=== PATIENT | male | born 1945 | race Caucasian/White ===

== ENCOUNTER 2016-07-21 18:28 | Observation (INO) | payer MEDICARE ==
[2016-07-21] MEDS ORDERED: Aspirin Low Dose CHEW TAB* 81 MG PO ONE (18:48)
[2016-07-21 19:06] LABS: Hematocrit 47 % (42-52); Hemoglobin 15.7 g/dl (14.0-18.0); Mean Corpuscular HGB Conc 34 g/dl (31-36); Mean Corpuscular Hemoglobin 30 pg (27-31); Mean Corpuscular Volume 90 fL (80-94); Mean Platelet Volume 8 um3 (7.4-10.4); Red Blood Count 5.17 10^6/ul (4.0-5.4); Red Cell Distribution Width 14 % (10.5-15); White Blood Count 11.2 10^3/ul (3.5-10.8)
[2016-07-21 19:21] LABS: Albumin 3.9 g/dL (3.2-5.2); BUN/Creatinine Ratio 15.1 (8-20); EGFR African American 89.1 (>60); EGFR Non-African American 69.3 (>60); Globulin 3.5 g/dL (2-4); Total Bilirubin 0.5 mg/dL (0.2-1.0); Total Protein 7.4 g/dL (6.4-8.9)
[2016-07-21 19:22] LABS: Troponin I 0.01 ng/mL (<0.04)
--- NOTE | 2016-07-21 19:28 | RAD ---
INDICATION: Chest pain COMPARISON: Chest x-ray January 13, 2013 TECHNIQUE: An AP portable view obtained at 1918 hours is submitted. FINDINGS: Bones/Soft Tissues: There are no acute bony findings. Cardiomediastinal: The cardiomediastinal silhouette is normal. Lungs: There are no infiltrates. Pleura: There are no pleural effusions. Other: None IMPRESSION: NO ACTIVE DISEASE.
[2016-07-21] MEDS ORDERED: NS 0.9% 1000 ML* 1,000 ML IV ONE (19:49)
[2016-07-21] MEDS ORDERED: Iohexol 350* (CONTRAST) 500 ML MDV IV ONE (19:49)
--- NOTE | 2016-07-21 20:16 | RAD ---
INDICATION: Dizziness COMPARISON: CT brain June 11, 2014 TECHNIQUE: Noncontrast axial source images were acquired from the skull base to the vertex. FINDINGS: Ventricles/sulci: The ventricles and cisterns are normal in size and configuration for age. Brain parenchyma: There is no acute focal parenchymal finding, evidence of intracranial mass, or intracranial mass effect. There is an old right lentiform nucleus infarct extending into the oliver radiata, unchanged. Intracranial hemorrhage:None. Extra-axial spaces: There are no abnormal extra axial fluid collections or evidence of extra-axial mass. Calvarium: There is no calvarial fracture or other calvarial abnormality. Scalp: There is no evidence of scalp or extracalvarial soft tissue abnormality. Paranasal sinuses/mastoid: The paranasal sinuses and mastoid air cells are clear. Other: Prominent vertebral arterial calcifications. IMPRESSION: NO ACUTE INTRACRANIAL FINDINGS. 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
--- NOTE | 2016-07-21 20:33 | RAD ---
INDICATION: Dizziness COMPARISON: CT brain same date; CTA head and neck June 11, 2014 TECHNIQUE: Axial source images were acquired with coronal and sagittal reconstructions. CT angiographic technique was utilized with injection of 80 mL Omnipaque 350. FINDINGS: Aortic arch: There are no CT angiogram abnormalities of the arch or the great vessels arising from the arch. Right carotid: The internal carotid artery, carotid bifurcation, extracranial portions of the internal carotid artery, carotid artery at the skull base, carotid siphon, and carotid termination appear patent. There is plaque formation at the bifurcation 50% or less diameter stenosis. Left carotid:The internal carotid artery, carotid bifurcation, extracranial portions of the internal carotid artery, carotid artery at the skull base, carotid siphon, and carotid termination appear normal. Right middle and anterior cerebral arteries: There are no CT angiographic abnormalities of the middle or anterior cerebral arteries. Left middle and anterior cerebral arteries: There are no CT angiographic abnormalities of the middle or anterior cerebral arteries Right vertebral: The CT angiographic appearance of the vertebral artery is patent. There is calcific plaque near the confluence with the basilar artery. Left vertebral: The CT angiographic appearance of the vertebral artery is normal. There is calcific plaquing of the confluence with the basilar artery. Basilar artery: The basilar artery and basilar tip appear normal. Posterior cerebral arteries: The distal distribution of the right and left posterior cerebral arteries is normal. [place]: The CT angiographic appearance of the [place] is normal. Source images show no evidence of mass or adenopathy within the neck. There are no focal parenchymal abnormalities or abnormal areas of enhancement. IMPRESSION: MILD ATHEROSCLEROTIC CHANGES. NO EVIDENCE OF A HEMODYNAMICALLY SIGNIFICANT STENOSIS, ANEURYSM, OR BRANCH OCCLUSION CPT II Codes: 3100F RS
[2016-07-21] MEDS ORDERED: Acetaminophen TAB* 325 MG PO PRN (20:53)
[2016-07-21] MEDS ORDERED: Ondansetron INJ* 2 MG/ML VIAL IV PRN (20:53)
[2016-07-21] MEDS ORDERED: Enoxaparin(*) 40 MG/0.4 ML SYR SUBCUT SCH (21:00)
[2016-07-21 21:32] LABS: Magnesium 1.8 mg/dL (1.9-2.7)
--- NOTE | 2016-07-22 03:19 | HP ---
ADMISSION HISTORY AND PHYSICAL: DATE OF ADMISSION: 07/21/16 PRIMARY CARE PROVIDER: Milton Asif NP. ADMITTING PROVIDER: HEIDY Martínez. SUPERVISING PHYSICIAN: Dr. Daniel Long.*(DICTATED BY HEIDY MARTÍNEZ) CHIEF COMPLAINT: Dizziness and chest pressure. HISTORY OF PRESENT ILLNESS: This is a 70-year-old gentleman with history of peripheral vascular disease, status post arterial stenting in his left leg by Dr. Britt 6 months ago, GERD, prior CVA, and gout, who presented to the emergency department with complaints of intermittent dizziness and chest pressure. The patient states that he had similar symptoms approximately 10 years ago and had a negative workup at that time, which included, what sounds to be a thorough cardiac evaluation. He states that he was asymptomatic for several years and his symptoms have been escalating over the last year or so, and in the last couple of weeks he has been having daily or sometimes multiple daily symptoms. He states that the symptoms are not necessarily associated with exertion, they can come at anytime and can occur at rest. He generally gets some relief with lying flat. He denies any associated diaphoresis or nausea, but generally gets short of breath. Symptoms can last anywhere from a minute to an hour, and he generally has a prodrome of what he considers as a feeling of his heart starting to race, then the pressure and the dizziness begin. He has had one prior syncopal episode about 6 to 9 months ago, but otherwise has not syncopized with the above symptoms. Yesterday, the patient reported associated right arm pain and tingling, which is a new symptom for him and it has not recurred since that time. The patient denies abdominal pain and nausea, vomiting. No associated fevers or other recent illness. PAST MEDICAL HISTORY: 1. Peripheral vascular disease, status post arterial stenting in the left leg. 2. GERD. 3. History of CVA without significant residual deficits. 4. Gout. PAST SURGICAL HISTORY: Arterial stenting of the left leg. HOME MEDICATIONS: 1. Aspirin 81 mg p.o. daily. 2. Colchicine 0.6 mg p.o. daily. 3. Protonix 40 mg p.o. daily. 4. Of note, the patient was taken off of Brilinta yesterday as it has been 6 months since his stent was placed. FAMILY HISTORY: The patient denies any family history of heart disease or stroke. SOCIAL HISTORY: The patient has a greater than [id number] smoking history and quit about 6 months ago. REVIEW OF SYSTEMS: As listed above in HPI and otherwise negative. PHYSICAL EXAMINATION GENERAL: This is a very pleasant 70-year-old gentleman, in no acute distress. VITAL SIGNS: Initial vitals, temperature 98.6 degrees Fahrenheit, pulse 82 beats per minute, respiratory rate 16 per minute, oxygen saturations 100% on room air, blood pressure 149/91. Orthostatic vital signs are unremarkable, maintains systolic pressures in the 130s and heart rates in the 70s in a lying, sitting, and standing positions. HEENT: Head is normocephalic, atraumatic, with moist mucous membranes. RESPIRATORY: Lungs are clear to auscultation without wheezes, crackles, or rhonchi. CARDIOVASCULAR: Heart has a regular rate and rhythm, without murmurs, rubs, or gallops. ABDOMEN: Soft and nontender to palpation. NEUROLOGIC: Cranial nerves II through XII are grossly intact. Strength 5/5 in all extremities. PSYCH: The patient is alert and appropriately oriented. DIAGNOSTIC STUDIES/LAB DATA: Laboratory evaluation: CBC shows a white blood cell count of 11,200, hemoglobin of 15.7 g/dL, and platelet count of 212,000. Comprehensive metabolic panel is unremarkable with a sodium of 136 mmol/L, potassium of 4.0 mmol/L, BUN of 16, creatinine of 1.06, estimated GFR of 69. Glucose of 102. Lactic acid normal at 1.5. Total bilirubin and transaminases within normal limits. Troponin negative at 0.01. Imaging: CT of the brain shows no acute disease, but evidence of old infarct. CTA of the head and neck shows no significant stenosis or aneurysm. Chest x-ray shows no acute disease. EKG shows a right bundle-branch block without changes compared to prior. ASSESSMENT AND PLAN: This is a 70-year-old gentleman with history of peripheral vascular disease, GERD, prior CVAs and gout, who presents with escalating symptoms of dizziness and chest pressure. He is asymptomatic at this time. 1. Dizziness and chest pressure - CTA was negative for significant stenosis. The patient's symptoms sound consistent with dysrhythmia. Perhaps, paroxysmal atrial fibrillation or SVT. Workup in the emergency department is unremarkable at this time. The patient will be admitted to observation status and maintained on continuous telemetry monitoring. We will add on a magnesium to his initial labs and replace appropriately if necessary. Serial troponins will also be obtained. If his symptoms are not reproduced during his hospital stay, we would recommend a Holter monitor and/or event monitor. 2. Peripheral vascular disease - continue aspirin. We will also plan on checking a fasting lipid panel. Of note, the patient is not on a statin, which would be indicated for both his peripheral vascular disease and history of CVA, and the patient does not recall any contraindications or intolerances to statin. 3. Gastroesophageal reflux disease. Continue Protonix. 4. History of gout. 5. Code status. The patient is a full code. 6. DVT prophylaxis. The patient is moderate risk for DVT and will be placed on Lovenox 40 mg subcu daily. 7. Healthcare proxy is to be his sister, Paty Villatoro. DISPOSITION: The patient is being admitted to the hospital under observation status with anticipated discharge tomorrow. HEIYD MARTÍNEZ CC: Milton Asif NP.* [id number]/[facility] #: [id number]
[2016-07-22 03:27] LABS: HDL Cholesterol 28.1 mg/dL
[2016-07-22 03:30] LABS: Troponin I 0.01 ng/mL (<0.04)
[2016-07-22] MEDS ORDERED: Omeprazole CAP* 20 MG PO SCH (06:00)
[2016-07-22 07:39] VITALS: BP 116/54
[2016-07-22] MEDS ORDERED: Aspirin EC Low Dose* 81 MG TAB.EC PO SCH (09:00)
[2016-07-22 11:35] LABS: TSH (Thyroid Stimulating Horm) 2.65 mcIU/mL (0.34-5.60)
--- NOTE | 2016-07-22 23:56 | DS ---
DISCHARGE SUMMARY: DATE OF ADMISSION: 07/21/16 DATE OF DISCHARGE: 07/22/16 PRIMARY CARE PROVIDER: Milton Asif NP. DISCHARGE DIAGNOSIS: Episodes of dizziness and heart palpitations most likely related to arrhythmia. SECONDARY DIAGNOSES: 1. Peripheral vascular disease, status post angioplasty of a superficial femoral artery by Dr. Britt in December 2016. 2. History of stroke, questionably embolic in 2013 with no residual deficits. 3. History of gout. 4. Gastroesophageal reflux disease. MEDICATIONS ON DISCHARGE: Unchanged from admission, include: 1. Aspirin 81 mg daily. 2. Colchicine 0.6 mg daily. 3. Protonix 40 mg daily. LABORATORY DATA AND STUDIES PERFORMED DURING THE HOSPITAL STAY: Included troponins throughout the patient's hospital stay was 0.01. Lipid profile showed triglycerides of 133, cholesterol of 152, LDL of 97 and HDL of 28. TSH on the day of admission was noted to be 2.65. The patient's head CTA obtained on 07/21/16, impression: "Mild atherosclerotic changes. No evidence of hemodynamically significant stenosis, aneurysmal branch occlusion." HOSPITALIZATION COURSE: Marcos Crain is a 70-year-old male with a history of peripheral vascular disease who saw Dr. Britt for followup of his peripheral vascular disease after stenting of his superficial femoral artery on the left leg with a visit on 07/20/16. During the 6 months' postop check when he was discussing his symptoms with Dr. Britt, he mentioned that he has had episodes of dizziness and a heat sensation in his chest. Dr. Britt referred him to the ED for further evaluation. Also at that visit, the patient was taken off the Brilinta with which he was treated for 6 months after his stent placement in December 2015. During my conversation with the patient on the day of discharge, he mentioned that he has had those episodes dating back to about 11 or 12 years ago. He describes them as a feeling of soft heartbeat and palpitations with subsequent wave of heat that develops in his chest and rises to his shoulders bilaterally. Also during that time later on, he experiences dizziness and a feeling of "heavy head." The patient stated that several weeks ago he passed out for about a minute after the episode. Afterwards he usually has a couple of slower heart beats that are very "intense" and the sensation resolves. He stated that those episodes may last anywhere from 1 minute to an hour. Somehow, it appears that the headache had been increasing in frequency and in the past several months had been occurring on almost a weekly basis. Last week he had one day on his when he had about 6 or 7 of those episodes, all of them lasting within minutes. When he presented to the ED, he reported the episodes that happened within the past couple of days. He did not have further symptoms of those described during his hospital stay and his temporary office assistant showed first degree AV block and right bundle branch block with his chronic EKG changes. There were no arrhythmias noted during the hospital stay apart from sinus bradycardia down to 48 when the patient is asleep. When I evaluated the patient, his heart rate freeman adequately from 60s to 70s and 80 beats per minute. His oxygen saturation was steady and 98% on room air while ambulating. I had a long discussion with the patient. He has a history of a possible embolic stroke in 2013. While the patient himself recalls that he had an event monitor that he was carrying for approximately a week that was negative several years ago, we were unable to find it in the medical records at that point. I did discuss briefly the case with Dr. Heredia. Dr. Heredia is going to forward the message to Dr. Gaffney's office for the patient to be scheduled in a short period of time for a 4- week monitor placement. The patient also recalls that he had an echocardiogram and stress test in 2013 after his stroke. All of them were unremarkable. Currently, the patient complains of no chest pain and no dizziness. He stated that he never really felt chest pain, but it was a sensation of heat in his chest as described above. Once again, the episodes of dizziness are not precipitated with exercise and they can occur when the patient is lying in bed. At this point, the patient is going to be discharged home. He is advised not to drive since he stated that several weeks ago, he actually passed out during one of those episodes. He is to call Dr. Gaffney's office on 07/24/16, to schedule a followup appointment and hopefully that will occur within the next couple of days afterwards for monitor placement. Physical exam at discharge is unchanged from admission. Please note this is a short summary of the patient's hospital stay. Please refer to further medical records for details. CC: Milton Asif NP; Dr. Gaffney; Dr. Heredia; Dr. Britt* [id number]/[facility] #: [id number] [facility]
--- NOTE | 2016-07-27 11:58 | ED ---
Shaquille Anderson Karl, scribed for Mora Jackson MD on 07/21/16 at 1905 . HPI Cardiac - HPI Summary HPI Summary: 70 y/o M presents to ED c/o a cardiovascular problem for the past 2 days. Pt reported that he has been having intermittent episodes of chest pressure and dizziness accompanied by a near syncopal sensation and occasional LOC. Pt stated his episodes start with dizziness/lightheadedness, then chest pressure/ heart starts racing, and then a feeling as if he is going to lose consciousness that usually resolves after after a few minutes to an hour when he is lying down. Pt reported that his last episode was at 09:30-10:00 this morning and that he had 6-7 episodes yesterday. Pt was referred to the ED by Dr. Britt after describing his sx to him. Pt also stated he has ABAD with his episodes. Pt denied pain in his left arm and any current CP. Pt stated that his last dose of Plavix was yesterday. Hx: quit smoking 6 months ago, multiple CVA's, peripheral vascular disease (stent place in left femoral artery). - History of Current Complaint Chief Complaint: EDDysrhythmPalp Stated Complaint: CHEST PRESSURE Time Seen by Provider: 07/21/16 18:44 Hx Obtained From: Patient Onset/Duration: Started Days Ago - 2, Atraumatic, Still Present Timing: Intermittent, Lasting Minutes - minutes to an hr Initial Severity: Mild Current Severity: Mild Pain Intensity: 0 Pain Scale Used: 0-10 Numeric Character: Pressure/Squeezing Aggravating Factor(s): Nothing Alleviating Factor(s): Position - lying down Associated Signs and Symptoms: Positive: Chest Pain, Headaches, Dizziness, Syncope, Lightheadedness, Palpitations - Additional Pertinent History Primary Care Physician: [id number] - Allergy/Home Medications Allergies/Adverse Reactions: Allergies Allergy/AdvReac Type Severity Reaction Status Date / Time No Known Allergies Allergy Verified 03/21/16 10:13 PMH/Surg Hx/FS Hx/Imm Hx Previously Healthy: Yes Endocrine/Hematology History: Denies: Hx Diabetes Cardiovascular History: Reports: Hx Coronary Artery Disease - ANGIO WITH STENT PLACEMENT LEFT LEG - 01/24/2016, Hx Hypercholesterolemia, Hx Peripheral Vascular Disease Denies: Hx Congestive Heart Failure, Hx Hypertension, Hx Pacemaker/ICD GI History: Reports: Hx Gastroesophageal Reflux Disease - GERD, Other GI Disorders - GASTRITIS History: Denies: Hx Renal Disease Musculoskeletal History: Reports: Hx Arthritis - LOWER BACK, PSEUDO GOUT LEFT KNEE, Hx Back Problems - CHRONIC LBP, Hx Gout Denies: Hx Rheumatoid Arthritis, Hx Osteoporosis Sensory History: Reports: Hx Cataracts - HX OF, Hx Contacts or Glasses - READING GLASSES Denies: Hx Hearing Aid Opthamlomology History: Reports: Hx Cataracts - HX OF, Hx Contacts or Glasses - READING GLASSES Neurological History: Reports: Other Neuro Impairments/Disorders - HX, STROKE 3 DAYS AGO. HX TIA.C/O NECK PAIN TODAY Psychiatric History: Denies: Hx Panic Disorder - Surgical History Surgery Procedure, Year, and Place: TONSILECTOMY A CHILD. 2011 RIGHT CATARACT SURGERY, [facility] [place]. 2013 TEEC, [facility] [place]. 01/21/2016 ANGIO OF AORTA, ANGIO OF UNILATERAL EXTREMITY WITH STENTING OF LEFT SFA, [facility] [place]. Hx Anesthesia Reactions: No Infectious Disease History: No Infectious Disease History: Denies: Traveled Outside the [place] in Last 30 Days - Family History Known Family History: Negative: Other - malignant hyperthermia, anesthesia reaction Family History: denies family history of glaucoma, cataracts, blindness - Social History Alcohol Use: None Substance Use Type: Reports: None Smoking Status (MU): Former Smoker Type: Cigarettes Amount Used/How Often: < 1 PPD Length of Time of Smoking/Using Tobacco: 50 yrs Have You Smoked in the Last Year: Yes Review of Systems Constitutional: Negative Eyes: Negative ENT: Negative Positive: Palpitations, Chest Pain Respiratory: Negative Gastrointestinal: Negative Genitourinary: Negative Musculoskeletal: Negative Skin: Negative Positive: Headache, Syncope Psychological: Normal All Other Systems Reviewed And Are Negative: Yes Physical Exam Triage Information Reviewed: Yes Vital Signs On Initial Exam: Initial Vitals Temp Pulse Resp BP Pulse Ox 98.6 F 82 16 149/91 100 07/21/16 18:31 07/21/16 18:31 07/21/16 18:31 07/21/16 18:31 07/21/16 18:31 Vital Signs Reviewed: Yes Appearance: Positive: Well-Appearing, No Pain Distress Skin: Positive: Warm, Skin Color Reflects Adequate Perfusion, Dry Head/Face: Positive: Normal Head/Face Inspection Eyes: Positive: EOMI, GAEL ENT: Positive: Pharynx normal, TMs normal Neck: Positive: Supple, Nontender Respiratory/Lung Sounds: Positive: Clear to Auscultation, Breath Sounds Present. Negative: Rales, Rhonchi, Wheezes Cardiovascular: Positive: RRR. Negative: Murmur, Rub Abdomen Description: Positive: Nontender, Soft. Negative: Distended, Guarding Bowel Sounds: Positive: Present Musculoskeletal: Positive: Strength/ROM Intact. Negative: Edema Left, Edema Right Neurological: Positive: Sensory/Motor Intact, Alert, Oriented to Person Place, Time, CN Intact II-III Psychiatric: Positive: Affect/Mood Appropriate Diagnostics - Vital Signs Vital Signs Temp Pulse Resp BP Pulse Ox 07/21/16 18:31 98.6 F 82 16 149/91 100 - Laboratory Lab Results: Lab Results 07/21/16 07/21/16 07/21/16 Range/Units 19:00 19:00 19:00 WBC 11.2 H (3.5-10.8) 10^3/ul RBC 5.17 (4.0-5.4) 10^6/ul Hgb 15.7 (14.0-18.0) g/dl Hct 47 (42-52) % MCV 90 (80-94) fL MCH 30 (27-31) pg MCHC 34 (31-36) g/dl RDW 14 (10.5-15) % Plt Count 212 (150-450) 10^3/ul MPV 8 (7.4-10.4) um3 Neut % (Auto) 71.9 (38-83) % Lymph % (Auto) 17.2 L (25-47) % [place] % (Auto) 7.8 (1-9) % Eos % (Auto) 2.4 (0-6) % Baso % (Auto) 0.7 (0-2) % Absolute Neuts (auto) 8.0 H (1.5-7.7) 10^3/ul Absolute Lymphs (auto) 1.9 (1.0-4.8) 10^3/ul Absolute Monos (auto) 0.9 H (0-0.8) 10^3/ul Absolute Eos (auto) 0.3 (0-0.6) 10^3/ul Absolute Basos (auto) 0.1 (0-0.2) 10^3/ul Absolute Nucleated RBC 0.01 10^3/ul Nucleated RBC % 0.1 Sodium 136 (133-145) mmol/L Potassium 4.0 (3.5-5.0) mmol/L Chloride 102 (101-111) mmol/L Carbon Dioxide 28 (22-32) mmol/L Anion Gap 6 (2-11) mmol/L BUN 16 (6-24) mg/dL Creatinine 1.06 (0.67-1.17) mg/dL Est GFR ( Amer) 89.1 (>60) Est GFR (Non-Af Amer) 69.3 (>60) BUN/Creatinine Ratio 15.1 (8-20) Glucose 102 H (70-100) mg/dL Lactic Acid 1.5 (0.5-2.0) mmol/L Calcium 10.0 (8.6-10.3) mg/dL Magnesium 1.8 L (1.9-2.7) mg/dL Total Bilirubin 0.50 (0.2-1.0) mg/dL AST 15 (13-39) U/L ALT 14 (7-52) U/L Alkaline Phosphatase 78 (34-104) U/L Troponin I 0.01 (<0.04) ng/mL Total Protein 7.4 (6.4-8.9) g/dL Albumin 3.9 (3.2-5.2) g/dL Globulin 3.5 (2-4) g/dL Albumin/Globulin Ratio 1.1 (1-3) TSH 2.65 (0.34-5.60) mcIU/mL Result Diagrams: 07/21/16 19:00 07/21/16 19:00 Lab Statement: Any lab studies that have been ordered have been reviewed, and results considered in the medical decision making process. - Radiology CXR Xray Interpretation: No Acute Changes Radiology Interpretation Completed By: Radiologist - IMPRESSION: No active disease. - CT CT Brain CT Interpretation: No Acute Changes CT Interpretation Completed By: Radiologist - IMPRESSION: NO ACUTE INTRACRANIAL FINDINGS. OLD RIGHT LENTIFORM NUCLEUS AND IN [place] RADIATA INFARCT. CTA Head CT Interpretation: Positive (See Comments) CT Interpretation Completed By: Radiologist - IMPRESSION: MILD ATHEROSCLEROTIC CHANGES. NO EVIDENCE OF A HEMODYNAMICALLY SIGNIFICANT STENOSIS, ANEURYSM, OR BRANCH OCCLUSION - EKG 18:35 EKG Interpretation: NSR 69 bpm, RBBB, No change compared to prior EKG on Disposition - Diagnoses Provider Diagnoses: Dizziness Discharge - Discharge Plan Condition: Good Disposition: ADMITTED TO [facility] The documentation as recorded by the Shaquille torres Karl accurately reflects the service I personally performed and the decisions made by me, Mora Jackson MD.
== END 2016-07-22 13:20 | disposition home or self-care (01) ==
LOC: ED 18:28 → MEDTELE 20:53
PROVIDERS: ADMIT Internal Medicine; ATTEND Internal Medicine
DX: R42 Dizziness and giddiness (principal); R00.2 Palpitations; R07.9 Chest pain, unspecified; I49.3 Ventricular premature depolarization; Z86.73 Personal history of transient ischemic attack (TIA), and cerebral infarction without residual deficits; K21.9 Gastro-esophageal reflux disease without esophagitis; I45.10 Unspecified right bundle-branch block; Z79.82 Long term (current) use of aspirin; Z79.899 Other long term (current) drug therapy; I65.21 Occlusion and stenosis of right carotid artery
CPT/HCPCS: 36415; 70450; 70496; 70498; 71010; 80053; 80061; 83605; 83735; 84443; 84484; 85025; 93005; 96360; 96372; 99285; A9270-GY; G0378; J1650; Q9967

== ENCOUNTER 2016-07-27 10:18 | Inpatient (IN) | payer MEDICARE ==
[2016-07-27] MEDS ORDERED: NS 0.9% 1000 ML* 1,000 ML IV SCH (11:15)
[2016-07-27 11:55] LABS: Hematocrit 45 % (42-52); Hemoglobin 15.2 g/dl (14.0-18.0); Mean Corpuscular HGB Conc 34 g/dl (31-36); Mean Corpuscular Hemoglobin 30 pg (27-31); Mean Corpuscular Volume 90 fL (80-94); Mean Platelet Volume 9 um3 (7.4-10.4); Red Blood Count 5.04 10^6/ul (4.0-5.4); Red Cell Distribution Width 14 % (10.5-15); White Blood Count 14.4 10^3/ul (3.5-10.8)
[2016-07-27 12:00] LABS: Urine Bacteria Absent (Absent); Urine Bilirubin Negative (Negative); Urine Glucose Negative (Negative); Urine Nitrite Negative (Negative)
--- NOTE | 2016-07-27 12:05 | RAD ---
Indication: Fall, chest pain. Single frontal view of the chest performed at 1125 hours was reviewed. Comparison is made with previous exam dated July 21, 2016. No mediastinal shift is noted. Heart is of normal size and configuration. Lung corrales appear clear. IMPRESSION: NO ACTIVE CARDIOPULMONARY DISEASE IS NOTED.
--- NOTE | 2016-07-27 12:09 | RAD ---
Indication: Syncope; fall. Hit head. Comparison: July 21, 2016 CT. Technique: Noncontrast CT vertex of skull through foramen magnum. Report: Mild to moderate prominence of the cerebral sulci. Unremarkable ventricles and basal cisterns. Chronic 2.0 x 0.5 cm lacunar infarct at the RIGHT basal ganglia and caudate head. No new region of johnson matter white matter obscuration, intra or extra-axial hemorrhage, or mass effect evident. Unremarkable orbital contents. Negative for calvarial or skull base fracture. Negative for scalp hematoma. Clear visualized paranasal sinuses and mastoid air spaces. IMPRESSION: 1. No traumatic injury or acute intracranial process evident. 2. Old RIGHT basal ganglia lacunar infarct. 3. Mild involutional change.
--- NOTE | 2016-07-27 12:09 | RAD ---
Indication: Neck injury, syncope. CT of the cervical spine was obtained in the axial plane. Sagittal and coronal reconstructed images were obtained. Mastoid air cells appear paranasal sinuses are unremarkable. Degenerative changes of the atlantoaxial joint is noted. The vertebral bodies appear normal in height. No fracture is identified. There is disc space narrowing at C3-C4, C4-C5, C5-C6 and C6-C7. No disc protrusion is identified. The lung apices demonstrate some biapical scarring. The spinous processes are unremarkable. IMPRESSION: Multilevel degenerative disc disease without evidence of fracture. No changes noted since January 13, 2013.
[2016-07-27 12:12] LABS: Albumin 3.8 g/dL (3.2-5.2); BUN/Creatinine Ratio 13.7 (8-20); C Reactive Protein 5.92 mg/L (< 5.00); Calcium 10.3 mg/dL (8.6-10.3); EGFR African American 79.5 (>60); EGFR Non-African American 61.8 (>60); Globulin 3.8 g/dL (2-4); Magnesium 1.8 mg/dL (1.9-2.7); Potassium 3.8 mmol/L (3.5-5.0); Total Bilirubin 0.5 mg/dL (0.2-1.0); Total Protein 7.6 g/dL (6.4-8.9)
[2016-07-27 12:14] LABS: Troponin I 0.01 ng/mL (<0.04)
[2016-07-27 12:38] LABS: TSH (Thyroid Stimulating Horm) 4.71 mcIU/mL (0.34-5.60)
[2016-07-27] MEDS ORDERED: oxyCODONE/Acetamin 5/325 MG* TAB PO ONE (12:54)
[2016-07-27] MEDS ORDERED: Acetaminophen TAB* 325 MG PO PRN (13:04)
[2016-07-27] MEDS ORDERED: Ondansetron INJ* 2 MG/ML VIAL IV PRN (13:28)
[2016-07-27] MEDS ORDERED: Magnesium Sulfate 2 GM IV* 2 GM/50 ML BAG IVPB ONE (13:41)
[2016-07-27] MEDS ORDERED: Potassium Chlor TAB* 20 MEQ TAB.ER PO ONE (14:06)
--- NOTE | 2016-07-27 15:06 | ED ---
Dereck Anderson Adam, scribed for Sesar العلي MD on 07/27/16 at 1127 . Syncope/Near Syncope - HPI Summary HPI Summary: Patient is a 70 y/o male who is in the [facility] s/p a 1-2sec episode of syncope at [id number] today. He had been standing for over an hour doing the dishes when he felt dizzy, tachycardic, and SOB in a cycle, 7 to 8 times. Pt explains he has been experiencing these spells for 12-14 years (each lasting minutes to an hour), but they have worsened this past year. He has also been experiencing episodes of SOB for the last year. He reports seeing his PCP (Milton Asif) for his SOB. This is the first time he has experienced LOC from the spells, but he did fall 6-8months ago after a "spell". Pt hit the right side of the back of his head upon falling and rates his pain at a 5/10. He reports moderate neck and shoulder pain following his fall, but pain is now mild. He has a ABAD from the fall, but denies any SOB currently. He also denies N/V, diarrhea, constipation, fever, diaphoresis, numbness, or tingling (although he does recall tingling in his right hand last week). He reports having a concussion as a child. He has no DM or HTN, but has GERD and Pseudogout. Pt was also here 6 days ago and had a CT of the brain that was negative. - History Of Current Complaint Chief Complaint: EDSyncope Time Seen by Provider: 07/27/16 11:01 Hx Obtained From: Patient Onset/Duration: Sudden Onset, Lasting Minutes, Resolved Timing: Minutes Context: Unwitnessed, Loss Of Consciousness - Brief Activity At Onset: At Rest - Standing up Associated Head Trauma: Yes Aggravating Factor(s): Other - Unknown Alleviating Factor(s): Spontaneous Resolution Associated Signs And Symptoms: Dizzy, Head Trauma (Recent), Headache, Lightheadedness, Palpitations Related History: Similar Episode/Dx as - Syncopal fall 6-8 months ago - Allergies/Home Medications Allergies/Adverse Reactions: Allergies Allergy/AdvReac Type Severity Reaction Status Date / Time No Known Allergies Allergy Verified 03/21/16 10:13 PMH/Surg Hx/FS Hx/Imm Hx Endocrine/Hematology History: Denies: Hx Diabetes Cardiovascular History: Reports: Hx Coronary Artery Disease - ANGIO WITH STENT PLACEMENT LEFT LEG - 01/24/2016, Hx Hypercholesterolemia, Hx Peripheral Vascular Disease Denies: Hx Congestive Heart Failure, Hx Hypertension, Hx Pacemaker/ICD GI History: Reports: Hx Gastroesophageal Reflux Disease - GERD, Other GI Disorders - GASTRITIS History: Denies: Hx Renal Disease Musculoskeletal History: Reports: Hx Arthritis - LOWER BACK, PSEUDO GOUT LEFT KNEE, Hx Back Problems - CHRONIC LBP, Hx Gout Denies: Hx Rheumatoid Arthritis, Hx Osteoporosis Sensory History: Reports: Hx Cataracts - HX OF, Hx Contacts or Glasses - READING GLASSES Denies: Hx Hearing Aid Opthamlomology History: Reports: Hx Cataracts - HX OF, Hx Contacts or Glasses - READING GLASSES Neurological History: Reports: Hx Transient Ischemic Attacks (TIA), Other Neuro Impairments/Disorders - HX, STROKE 3 DAYS AGO. HX TIA.C/O NECK PAIN TODAY Psychiatric History: Denies: Hx Panic Disorder - Surgical History Surgery Procedure, Year, and Place: TONSILECTOMY A CHILD. 2011 RIGHT CATARACT SURGERY, [facility] [place]. 2013 TEEC, [facility] [place]. 01/21/2016 ANGIO OF AORTA, ANGIO OF UNILATERAL EXTREMITY WITH STENTING OF LEFT SFA, [facility]. Hx Anesthesia Reactions: No - Immunization History Date of Tetanus Vaccine: within past 5 years Date of Influenza Vaccine: 2015 Infectious Disease History: No Infectious Disease History: Denies: Traveled Outside the [place] in Last 30 Days - Family History Family History: Denies family history of glaucoma, cataracts, blindness. Father from [place] at 74y/o. Mother had Alzheimers and CVA. No FHx of seizure. An uncle with bone marrow cancer. - Social History Occupation: Employed Full-time Lives: Alone Alcohol Use: None Hx Substance Use: No Substance Use Type: Reports: None Hx Tobacco Use: Yes Smoking Status (MU): Former Smoker - Quit 6 months ago (used to smoke 1ppd for 40 years). Type: Cigarettes Amount Used/How Often: 1 pack a day Length of Time of Smoking/Using Tobacco: 50 yrs Have You Smoked in the Last Year: Yes Review of Systems Positive: Palpitations Neurological: Other - Dizziness Positive: Headache, Syncope All Other Systems Reviewed And Are Negative: Yes Physical Exam Triage Information Reviewed: Yes Vital Signs On Initial Exam: Initial Vitals Temp Pulse Resp BP Pulse Ox 98 F 75 18 136/86 98 07/27/16 10:20 07/27/16 10:20 07/27/16 10:20 07/27/16 10:20 07/27/16 10:20 Vital Signs Reviewed: Yes Appearance: Positive: Well-Appearing, No Pain Distress Skin: Positive: Warm, Skin Color Reflects Adequate Perfusion, Dry Head/Face: Positive: Other - 5.5cm laceration, right occipital subcutaneous. Eyes: Positive: EOMI, GAEL ENT: Positive: Normal ENT inspection Neck: Positive: Supple, Nontender Respiratory/Lung Sounds: Positive: Clear to Auscultation, Breath Sounds Present Cardiovascular: Positive: RRR Abdomen Description: Positive: Nontender, Soft Bowel Sounds: Positive: Present Musculoskeletal: Positive: Normal, Strength/ROM Intact Neurological: Positive: Normal, Sensory/Motor Intact, Alert, Oriented to Person Place, Time Psychiatric: Positive: Affect/Mood Appropriate Procedures - Laceration/Wound Repair 1 Location: head - Right occipital subcutaneous. Description: Linear - 5.5cm Anesthesia: 1.0%, [place] Laceration/Wound Explored: clean - Shur-cleanse and sterile saline. Suture Type: Other - [place]. Number of Sutures: 8 Diagnostics - Vital Signs Vital Signs Temp Pulse Resp BP Pulse Ox 07/27/16 10:20 98 F 75 18 136/86 98 - Laboratory Lab Results: Lab Results 07/27/16 07/27/16 07/27/16 Range/Units 10:49 11:43 11:43 WBC 14.4 H (3.5-10.8) 10^3/ul RBC 5.04 (4.0-5.4) 10^6/ul Hgb 15.2 (14.0-18.0) g/dl Hct 45 (42-52) % MCV 90 (80-94) fL MCH 30 (27-31) pg MCHC 34 (31-36) g/dl RDW 14 (10.5-15) % Plt Count 247 (150-450) 10^3/ul MPV 9 (7.4-10.4) um3 Neut % (Auto) 69.6 (38-83) % Lymph % (Auto) 19.7 L (25-47) % Moody % (Auto) 6.9 (1-9) % Eos % (Auto) 2.1 (0-6) % Baso % (Auto) 1.7 (0-2) % Absolute Neuts (auto) 10.0 H (1.5-7.7) 10^3/ul Absolute Lymphs (auto) 2.8 (1.0-4.8) 10^3/ul Absolute Monos (auto) 1.0 H (0-0.8) 10^3/ul Absolute Eos (auto) 0.3 (0-0.6) 10^3/ul Absolute Basos (auto) 0.2 (0-0.2) 10^3/ul Absolute Nucleated RBC 0 10^3/ul Nucleated RBC % 0 INR (Anticoag Therapy) 0.94 (0.89-1.11) APTT 27.5 (26.0-36.3) seconds D-Dimer, Quantitative > 1050 H (Less Than 230) ng/mL Sodium (133-145) mmol/L Potassium (3.5-5.0) mmol/L Chloride (101-111) mmol/L Carbon Dioxide (22-32) mmol/L Anion Gap (2-11) mmol/L BUN (6-24) mg/dL Creatinine (0.67-1.17) mg/dL Est GFR ( Amer) (>60) Est GFR (Non-Af Amer) (>60) BUN/Creatinine Ratio (8-20) Glucose (70-100) mg/dL Lactic Acid (0.5-2.0) mmol/L Calcium (8.6-10.3) mg/dL Magnesium (1.9-2.7) mg/dL Total Bilirubin (0.2-1.0) mg/dL AST (13-39) U/L ALT (7-52) U/L Alkaline Phosphatase (34-104) U/L Total Creatine Kinase (10-223) U/L CK-MB (CK-2) (0.6-6.3) ng/mL Troponin I (<0.04) ng/mL C-Reactive Protein (< 5.00) mg/L B-Natriuretic Peptide ( - 100) pg/mL Total Protein (6.4-8.9) g/dL Albumin (3.2-5.2) g/dL Globulin (2-4) g/dL Albumin/Globulin Ratio (1-3) Lipase (11.0-82.0) U/L TSH (0.34-5.60) mcIU/mL Urine Color Yellow Urine Appearance Cloudy Urine pH 7.0 (5-9) Ur Specific [place] 1.009 L (1.010-1.030) Urine Protein Negative (Negative) Urine Ketones Negative (Negative) Urine Blood Negative (Negative) Urine Nitrate Negative (Negative) Urine Bilirubin Negative (Negative) Urine Urobilinogen Negative (Negative) Ur Leukocyte Esterase 3+ H (Negative) Urine WBC (Auto) 3+(>20/hpf) H (Absent) Urine RBC (Auto) Trace(0-2/hpf) (Absent) Ur Squamous Epith Cells Present H (Absent) Urine Bacteria Absent (Absent) Urine Glucose Negative (Negative) 07/27/16 07/27/16 07/27/16 Range/Units 11:43 11:43 11:43 WBC (3.5-10.8) 10^3/ul RBC (4.0-5.4) 10^6/ul Hgb (14.0-18.0) g/dl Hct (42-52) % MCV (80-94) fL MCH (27-31) pg MCHC (31-36) g/dl RDW (10.5-15) % Plt Count (150-450) 10^3/ul MPV (7.4-10.4) um3 Neut % (Auto) (38-83) % Lymph % (Auto) (25-47) % Moody % (Auto) (1-9) % Eos % (Auto) (0-6) % Baso % (Auto) (0-2) % Absolute Neuts (auto) (1.5-7.7) 10^3/ul Absolute Lymphs (auto) (1.0-4.8) 10^3/ul Absolute Monos (auto) (0-0.8) 10^3/ul Absolute Eos (auto) (0-0.6) 10^3/ul Absolute Basos (auto) (0-0.2) 10^3/ul Absolute Nucleated RBC 10^3/ul Nucleated RBC % INR (Anticoag Therapy) (0.89-1.11) APTT (26.0-36.3) seconds D-Dimer, Quantitative (Less Than 230) ng/mL Sodium 134 (133-145) mmol/L Potassium 3.8 (3.5-5.0) mmol/L Chloride 102 (101-111) mmol/L Carbon Dioxide 29 (22-32) mmol/L Anion Gap 3 (2-11) mmol/L BUN 16 (6-24) mg/dL Creatinine 1.17 (0.67-1.17) mg/dL Est GFR ( Amer) 79.5 (>60) Est GFR (Non-Af Amer) 61.8 (>60) BUN/Creatinine Ratio 13.7 (8-20) Glucose 79 (70-100) mg/dL Lactic Acid 1.1 (0.5-2.0) mmol/L Calcium 10.3 (8.6-10.3) mg/dL Magnesium 1.8 L (1.9-2.7) mg/dL Total Bilirubin 0.50 (0.2-1.0) mg/dL AST 17 (13-39) U/L ALT 14 (7-52) U/L Alkaline Phosphatase 79 (34-104) U/L Total Creatine Kinase 280 H (10-223) U/L CK-MB (CK-2) 7.6 H (0.6-6.3) ng/mL Troponin I 0.01 (<0.04) ng/mL C-Reactive Protein 5.92 H (< 5.00) mg/L B-Natriuretic Peptide 16 ( - 100) pg/mL Total Protein 7.6 (6.4-8.9) g/dL Albumin 3.8 (3.2-5.2) g/dL Globulin 3.8 (2-4) g/dL Albumin/Globulin Ratio 1.0 (1-3) Lipase 21 (11.0-82.0) U/L TSH 4.71 (0.34-5.60) mcIU/mL Urine Color Urine Appearance Urine pH (5-9) Ur Specific [place] (1.010-1.030) Urine Protein (Negative) Urine Ketones (Negative) Urine Blood (Negative) Urine Nitrate (Negative) Urine Bilirubin (Negative) Urine Urobilinogen (Negative) Ur Leukocyte Esterase (Negative) Urine WBC (Auto) (Absent) Urine RBC (Auto) (Absent) Ur Squamous Epith Cells (Absent) Urine Bacteria (Absent) Urine Glucose (Negative) Result Diagrams: 07/27/16 11:43 07/27/16 11:43 Lab Statement: Any lab studies that have been ordered have been reviewed, and results considered in the medical decision making process. - Radiology CXR Radiology Interpretation Completed By: Radiologist - IMPRESSION: NO ACTIVE CARDIOPULMONARY DISEASE IS NOTED. - CT CERVICAL SPINE CT Interpretation Completed By: Radiologist - IMPRESSION: Multilevel degenerative disc disease without evidence of fracture. No changes BRAIN CT Interpretation Completed By: Radiologist - IMPRESSION: 1. No traumatic injury or acute intracranial process evident. 2. Old RIGHT basal ganglia lacunar infarct. 3. Mild involutional change. - EKG 10:37 Cardiac Rate: NL - 75 BPM EKG Rhythm: Sinus Rhythm - Normal EKG Interpretation: Border ST elevation in the lateral leads - Additional Comments Diagnostic Additional Comments: Troponin = 0.01 Course/Dx Assessment/Plan: SCALP LACERATION CLEANED AND CLOSED WITH ELKE. RESULTS DISCUSSED WITH PATIENT/FAMILY. ADMIT HOSPITALIST STABLE. - Diagnoses Provider Diagnoses: SYNCOPE, Head injury, Scalp laceration Discharge - Discharge Plan Condition: Stable Disposition: ADMITTED TO [facility] documentation as recorded by the Dereck torres Adam accurately reflects the service I personally performed and the decisions made by me, Sesar العلي MD.
[2016-07-27] MEDS: Heparin VIAL(*) 5000 UNITS/ML VIAL (FIVE THOUSAND) SUBCUT SCH ×2 (15:51→22:11)
[2016-07-27] MEDS: NS 0.9% 1000 ML* 1,000 ML IV SCH (15:52)
[2016-07-27] MEDS ORDERED: oxyCODONE/Acetamin 5/325 MG* TAB PO PRN (18:54)
[2016-07-27] MEDS: Omeprazole CAP* 20 MG PO SCH (20:14)
--- NOTE | 2016-07-27 20:33 | HP ---
HISTORY AND PHYSICAL: DATE OF ADMISSION: 07/27/16 PRIMARY CARE PROVIDER: Milton Asif NP ATTENDING PHYSICIAN WHILE IN THE HOSPITAL: Dr. Mckeon *(report dictated by Kori Martínez NP). CHIEF COMPLAINT: 1. Syncope. 2. Chest pressure. HISTORY OF PRESENT ILLNESS: Mr. Crain is a 70-year-old male patient. He has a history of peripheral vascular disease, GERD, CVA, and gout. He comes in today stating that again he had an episode similar to his previous episodes. He was just here from the to . He describes standing at a sink, doing his dishes, he had chest pressure across his chest. He normally would lie down. He had some palpitations. He felt warm. Normally, he would go and lie down and these symptoms would go away because he knows if the symptoms continue , there is a high probability that he would pass out, but today he wanted to finish doing his dishes, so he did not go sit down and unfortunately, he did have an episode where he syncopized. He states he blacked out and by the time he opened his eyes, he was almost hitting the floor. He says that last week he had episodes of this. He has episodes about once a day, not with the syncope all the time, just chest pressure at times. It is nonexertional. He denies having any recent fevers, chills, nausea, vomiting or diarrhea. He came into the ER. There was concern because of the syncopal episode and the fact that he has a fairly significant history of vascular disease. Hospitalist service was asked to evaluate for admission. PAST MEDICAL HISTORY: Significant for: 1. PVD. 2. GERD. 3. CVA. 4. Gout. PAST SURGICAL HISTORY: He has had 6 months ago a stent to his left leg with Dr. Britt. HOME MEDICATIONS: Include: 1. Aspirin 81 mg daily. 2. Protonix 40 mg daily. 3. Colchicine 0.6 mg p.o. daily. ALLERGIES TO MEDICATIONS: Include no known drug allergies. FAMILY HISTORY: His father did have a heart attack. Mother's history was reviewed and noncontributory. SOCIAL HISTORY: He is a former smoker. He does not drink alcohol. He lives alone. Surrogate decision maker is his sister. REVIEW OF SYSTEMS: There is no documented fever. He denied having any significant weight change. There was no double vision. There is no ear discharge. He denies having any rhinorrhea. There is no sore throat. No thyroid enlargement. There is chest pain per my HPI. There is no dyspnea on exertion. There is no orthopnea. No nocturnal dyspnea. No abdominal pain. No nausea. No vomiting. No dysuria. No frequency. No loss of consciousness. No pruritus. No skin ulcerations. Review of 14 systems completed, all others negative. PHYSICAL EXAMINATION GENERAL: At this time, Mr. Crain is a 70-year-old male patient. He appears to be well nourished, well developed. Does not appear to be in any acute distress. VITAL SIGNS: Blood pressure 136/86 with a pulse of 75, respirations 18, O2 sat 98%, and temperature 98.0. HEENT: Head: Atraumatic and normocephalic. He does have a laceration in the occipital area from the fall. Otherwise atraumatic. Eyes: EOMs intact. Sclerae are anicteric and not pale. Throat: Oral mucosa appears to be moist. No oropharyngeal erythema. NECK: Supple. LUNGS: Clear to auscultation bilaterally. No wheezes, rales, or rhonchi. HEART: Sounds S1, S2. Regular rate and rhythm. No murmurs, rubs, or gallops. ABDOMEN: Soft, flat, and nontender. Bowel sounds present. EXTREMITIES: Pulses 2+ throughout. He is able to move all 4 extremities with 5 /5 strength. NEUROLOGIC: The patient is awake, he is alert and oriented x3. Tongue midline. Instrumentation Manager are equal. No gross focal deficits. SKIN: Intact with the exception that he has got a laceration to the back of his head which is now stapled. LABORATORY DATA AND DIAGNOSTIC STUDIES: Today reveal a WBC of 14.4, RBC of 5.04, hemoglobin of 15.2, hematocrit of 45, platelet count 247. INR 0.94. PTT of 27.5. Sodium was 134, potassium was 3.8, chloride of 102, bicarb 29, BUN 16, creatinine of 1.17, glucose 79, lactic 1.1, calcium 10.3, magnesium 1.8. Total bili 0.5, AST 17, ALT 14, alk phos 79, CK 280, CK-MB 7.6, troponin 0.01. CRP of 5.92. Albumin of 3.8. TSH of 4.71. Urine showed 3+ leukocyte esterase, 2+ wbc. He had a brain CT obtained today, which revealed no traumatic injury or acute intracranial process evident. Old right basal ganglia lacunar infarct. Mild involutional change. Cervical spine CT showed multilevel degenerative disk disease without evidence of fracture. No changes noted since December 2012. Chest x-ray obtained today showed no active cardiopulmonary disease. EKG shows a normal sinus rhythm, rate of 75. He had inverted T waves in V1, which he has had in the past. He had as noted right bundle branch block, which has been noted in the past. Old medical records were reviewed. ASSESSMENT AND PLAN: Mr. Crain is a 70-year-old male patient coming into the ER today with complaints of chest discomfort and also complaining of episodes of syncope. He will be admitted under observation status for: 1. Chest pain with syncope: At this point, I do think he warrants an echo. We will go ahead and get a nuclear stress test. In addition to this, we will place him on telemetry, start him on an aspirin. We will check a lipid panel and an A1c and for the time being, I did touch base with Cardiology. If the echo and stress test are negative, we will need to send him for an outpatient Holter monitor or implantable monitor, but we would like to see what the ischemia evaluation shows. 2. Leukocytosis: Probably a leukemoid reaction secondary to the syncopal episode. I do not see any obvious source at this point. He is not given me any signs or symptoms of an active infection. We will monitor this. 3. Peripheral vascular disease: He is on an aspirin already. Brilinta was stopped by Dr. Birtt. We could consider adding a statin, but I will defer this to primary unless his lipid panel is abnormal. 4. Gastroesophageal reflux disease: Continue medications as prescribed. 5. Cerebrovascular accident: Continue with secondary prevention. 6. Gout: Continue his colchicine. 7. DVT prophylaxis: He is moderate risk. He will be placed on heparin subcu. 8. Code status: He is a full code. 9. Fluids, electrolytes, and nutrition: He will be on a heart healthy diet and n.p.o. after midnight. TIME SPENT: Time spent on the admission was 60 minutes; greater than half the time was spent [id number] with the patient obtaining my history and physical, other half of the time spent going over the plan of care with the patient and implementing plan of care. I did discuss the plan of care with my attending, Dr. Mckeon; he is in agreement. KORI MARTÍNEZ NP CC: Milton Asif NP * [id number]/[facility] #: [id number] LICHA
[2016-07-28] MEDS: NS 0.9% 1000 ML* 1,000 ML IV SCH (05:33)
[2016-07-28] MEDS: Heparin VIAL(*) 5000 UNITS/ML VIAL (FIVE THOUSAND) SUBCUT SCH ×3 (05:36→20:08)
[2016-07-28 06:25] LABS: Hematocrit 41 % (42-52); Hemoglobin 13.8 g/dl (14.0-18.0); Mean Corpuscular HGB Conc 34 g/dl (31-36); Mean Corpuscular Hemoglobin 30 pg (27-31); Mean Corpuscular Volume 90 fL (80-94); Mean Platelet Volume 9 um3 (7.4-10.4); Red Blood Count 4.53 10^6/ul (4.0-5.4); Red Cell Distribution Width 14 % (10.5-15); White Blood Count 9.9 10^3/ul (3.5-10.8)
[2016-07-28 06:41] LABS: BUN/Creatinine Ratio 11.8 (8-20); Calcium 9.2 mg/dL (8.6-10.3); EGFR African American 85.4 (>60); EGFR Non-African American 66.4 (>60); Potassium 3.9 mmol/L (3.5-5.0)
[2016-07-28] MEDS ORDERED: Iohexol 350* (CONTRAST) 500 ML MDV IV SCH (08:54)
--- NOTE | 2016-07-28 10:18 | RAD ---
Indication: Shortness of breath. CTA of the chest was performed after IV contrast administration. Coronal and sagittal reconstructed images were obtained. Administered 69.1 ml of Contrast -- mg/ml was given according to hospital protocol. Comparison is made with the previous exam dated April 05, 2009. The pulmonary arterial tree is well opacified. There are no filling defects present to suggest pulmonary embolus. No evidence of filling defects are noted in the pulmonary arteries. The aorta demonstrates no aneurysmal dilatation or aortic dissection. AP window lymph nodes and calcified right hilar lymph nodes measure up to 11 mm are noted. Subcarinal lymph nodes are noted. The heart demonstrates no pericardial effusion. The lung corrales demonstrate no evidence of alveolar consolidation. Dependent changes are noted. No pulmonary nodules are identified. No dilated loops of bowel are noted. IMPRESSION: There is no evidence of pulmonary emboli noted. Calcified lymph nodes and calcifications in the spleen consistent with old granulomatous disease. No pulmonary lesions are identified.
[2016-07-28] MEDS: Omeprazole CAP* 20 MG PO SCH ×2 (10:45→20:28)
[2016-07-28] MEDS: Colchicine* 0.6 MG TAB PO SCH (10:45)
[2016-07-28] MEDS: Aspirin EC Low Dose* 81 MG TAB.EC PO SCH (10:45)
[2016-07-28] MEDS ORDERED: Regadenoson* 0.4 MG/5 ML SYRINGE ONE (12:28)
--- NOTE | 2016-07-28 13:33 | ECHO ---
Patient: RIKKI GARCIA [facility] Rec#: [id number] : 1945 Date: 07/28/2016 Age: 70y Height: 177.8 cm / 70.0 in Weight: 77.56 kg / 170.9 lbs Sex: M BSA: 1.95 Room#: [facility] Admit Date#: 07/27/2016 Type: Inpatient Referring: Elias Martínez NP Reading: Jameson Dumont DO Library Cataloging Technician: Radha King RDCS CC: Milton Asif NP Transthoracic Echocardiogram Indication: CP/syncope BP: 104/55 HR: 54 Rhythm: Bradycardia Findings History: PVD,GERD,CVA,gout,former smoker. Technical Comments: The study quality is good. Completed at 1245. Left Ventricle: The left ventricular chamber size is normal. Mild concentric left ventricular hypertrophy is observed. Global left ventricular wall motion and contractility are within normal limits. There is normal left ventricular systolic function. The estimated ejection fraction is 55-60%. Normal left ventricular diastolic filling is observed. Left Atrium: The left atrium is normal in size. Right Ventricle: The right ventricle is mildly dilated. The right ventricular global systolic function is mildly reduced. Right Atrium: The right atrial cavity size is normal. Aortic Valve: The aortic valve is trileaflet. Mild aortic leaflet calcification is visualized.Mild aortic leaflet thickening seen. There is no evidence of aortic regurgitation. There is no evidence of aortic stenosis. Mitral Valve: The mitral valve leaflets are mildly thickened. There is a trace of mitral regurgitation. There is no evidence of mitral stenosis. Tricuspid Valve: The tricuspid valve leaflets are normal. There is trace to mild tricuspid regurgitation. No pulmonary hypertension is noted. There is no tricuspid stenosis. Pulmonic Valve: The pulmonic valve appears normal. There is no evidence of pulmonic regurgitation. There is no pulmonic stenosis. Pericardium: There is no significant pericardial effusion. Aorta: There is no dilatation of the ascending aorta. There is no dilation of the aortic root. Pulmonary Artery: The main pulmonary artery is not well visualized. Venous: The venous system is not well visualized. Conclusions The left ventricular chamber size is normal. Mild concentric left ventricular hypertrophy is observed. There is normal left ventricular systolic function. The LV estimated ejection fraction is 55-60%. Global left ventricular wall motion and contractility are within normal limits. The left atrium is normal in size. The right ventricle is mildly dilated. The right ventricular global systolic function is mildly reduced. Mild aortic leaflet thickening and calcification is visualized. No pulmonary hypertension is noted Compared to prior study from 05/2014, the RV size and function are now mildly dilated and reduced respectively (previously function was normal with mild RV dilation) Measurements Name Value Normal Range RVIDd (AP) 2D 2.7 cm (0.9 - 2.6) RVDdMajor (2D) 4.4 cm (2.2 - 4.4) RAd ISD 4CH 4.7 cm (3.4 - 4.9) RA (A4C)W 3.6 cm (2.9 - 4.6) IVSd (2D) 1.2 cm (0.6 - 1) LVPWd (2D) 1.1 cm (0.6 - 1) LVIDd (2D) 4.2 cm (3.6 - 5.4) LVIDs (2D) 2.4 cm - LV FS (2D) 42 % (25 - 45) Aortic Annulus 2.3 cm (1.4 - 2.6) Ao root diameter (2D) 3.3 cm (2.1 - 3.5) Ascending Ao 3.2 cm (2.1 - 3.4) Aortic arch 3.4 cm (1.8 - 3.4) Descending Ao 0.5 cm - LA dimension (AP) 2D 3.8 cm (2.3 - 3.8) LAd ISD 4CH 5.9 cm (2.9 - 5.3) LA ISD 4CH W 4 cm (2.5 - 4.5) Name Value Normal Range LA ESV SP 4CH (A/L) 62 ml - LA ESV SP 2CH (A/L) 46 ml - LA ESV BP (A/L) 59 ml - LA ESV BP (A/L) index 30.45 ml/m2 - LA ESV SP 4CH (MOD) 56 ml - LA ESV SP 2CH (MOD) 45 ml - Name Value Normal Range MV E-wave Vmax 0.8 m/sec - MV deceleration time 228 msec - MV A-wave Vmax 0.7 m/sec - MV E:A ratio 1.21 ratio - LV septal e' Vmax 0.06 m/sec - LV lateral e' Vmax 0.11 m/sec - LV E:e' septal ratio 13.33 ratio - LV E:e' lateral ratio 7.27 ratio - Name Value Normal Range AV Vmax 1.2 m/sec - AV VTI 26.9 cm - AV peak gradient 5.88 mmHg - AV mean gradient 2.49 mmHg - LVOT Vmax 0.9 m/sec - LVOT VTI 24.3 cm - LVOT peak gradient 3.49 mmHg - LVOT mean gradient 1.72 mmHg - Name Value Normal Range TR Vmax 2.3 m/sec - TR peak gradient 21 mmHg - RAP 8 mmHg - RVSP 29 mmHg - Name Value Normal Range PV Vmax 0.7 m/sec - PV peak gradient 1.72 mmHg -
--- NOTE | 2016-07-28 14:34 | RAD ---
HISTORY: Syncope, palpitations COMPARISONS: None TECHNIQUE: A 1 day stress/rest myocardial perfusion study was performed, with pharmacologic stress. The stress portion was monitored by Dr. Cali. Gated SPECT imaging was performed, without CT-based attenuation correction secondary to claustrophobia DOSE: Stress: Technetium 99m tetrofosmin, 25.37 millicuries, injected at 1:33 PM on July 28, 2016 Rest: Technetium 99m tetrofosmin, 10.7 millicuries, injected at 7:35 AM on July 28, 2016 Pharmacologic agent: Lexiscan FINDINGS: CARDIAC MONITORING: Baseline right bundle-branch block. No significant changes with stress. EF: 76 % TID: 1.07 MOTION: Normal motion, with normal wall thickening. PERFUSION: There is a small focus of hypoperfusion of the inferior wall towards the apex, suggestive of an area of infarct. The reversibility noted on the polar map the sulci represent an artifact of misregistration OTHER: None IMPRESSION: SMALL FIXED HYPOPERFUSION OF THE INFERIOR WALL TOWARDS THE APEX. ASSESSMENT: LOW RISK. Based on imaging criteria from ACC/AHA 2002. Guideline Update for the Management of Patient's with Chronic Stable Angina, table 23. Noninvasive Risk Stratification.
--- NOTE | 2016-07-28 16:07 | PN ---
Subjective Date of Service: 07/28/16 Interval History: Pt feels well. Has not had any episodes of palliations since admission. denies CP Objective Active Medications: Acetaminophen (Tylenol Tab*) 650 mg PO Q4H PRN PRN Reason: FEVER/PAIN Last Admin: 07/27/16 15:52 Dose: 650 mg Aspirin ([facility]in Ec Low Dose*) [facility] [place] Admin: 07/28/16 10:45 Dose: Not Given Colchicine (Colcrys*) [facility] Last Admin: 07/28/16 10:45 Dose: Not Given Heparin Sodium (Porcine) (Heparin Vial(*)) 5,000 units SUBCUT Q8HR [facility] Last Admin: 07/28/16 05:36 Dose: 5,000 units Sodium Chloride (Ns 0.9% 1000 Ml*) 1,000 mls @ 75 mls/hr IV PER RATE [facility] Last Admin: 07/28/16 05:33 Dose: 75 mls/hr Iohexol (Omnipaque 350 (Contrast)-) 69 ml IV ONCE [facility] Stop: 07/30/16 08:53 Last Admin: 07/28/16 09:44 Dose: 69 ml Omeprazole (Prilosec Cap*) 20 mg PO BID [facility] Last Admin: 07/28/16 10:45 Dose: Not Given Ondansetron HCl (Zofran Inj*) 4 mg IV Q6H PRN PRN Reason: NAUSEA Oxycodone/Acetaminophen (Percocet 5/325 Tab*) 1 tab PO Q4H PRN PRN Reason: PAIN Last Admin: 07/27/16 19:10 Dose: 1 tab Vital Signs 07/27/16 07/27/16 07/27/16 17:04 19:10 19:43 Temperature 100.6 F Pulse Rate 62 96 Respiratory 17 18 Rate Blood Pressure 153/85 (mmHg) O2 Sat by Pulse 97 Oximetry 07/27/16 07/27/16 07/27/16 20:29 20:45 21:10 Temperature 98.0 F Pulse Rate 55 76 Respiratory 16 16 Rate Blood Pressure 87/46 98/64 (mmHg) O2 Sat by Pulse 96 Oximetry 07/27/16 07/28/16 07/28/16 23:56 04:19 07:42 Temperature 98.2 F 99.8 F 98.0 F Pulse Rate 49 59 50 Respiratory 16 17 16 Rate Blood Pressure 100/48 104/55 107/42 (mmHg) O2 Sat by Pulse 96 97 97 Oximetry 07/28/16 07/28/16 08:00 11:36 Temperature 98.6 F Pulse Rate 51 Respiratory 17 16 Rate Blood Pressure 120/46 (mmHg) O2 Sat by Pulse 98 Oximetry Oxygen Devices in Use Now: None Appearance: 70 yo M in nAd, aAOx3 Eyes: No Scleral Icterus, PERRLA Ears/Nose/Mouth/Throat: NL Teeth, Lips, Gums Neck: NL Appearance and Movements; NL JVP, Trachea Midline Respiratory: Symmetrical Chest Expansion and Respiratory Effort Cardiovascular: NL Sounds; No Murmurs; No JVD, RRR Abdominal: NL Sounds; No Tenderness; No Distention, No Hepatosplenomegaly Lymphatic: No Cervical Adenopathy Extremities: No Edema, No Clubbing, Cyanosis Skin: No Nodules or Sclerosis, - - R sided occipital laceration stapled, no dehiscence noted Neurological: Alert and Oriented x 3, NL Muscle Strength and Tone Result Diagrams: 07/28/16 05:57 07/28/16 05:57 Additional Lab and Data: Lab Results 07/27/16 07/27/16 07/27/16 Range/Units 10:49 11:43 11:43 WBC 14.4 H (3.5-10.8) 10^3/ul RBC 5.04 (4.0-5.4) 10^6/ul Hgb 15.2 (14.0-18.0) g/dl Hct 45 (42-52) % MCV 90 (80-94) fL MCH 30 (27-31) pg MCHC 34 (31-36) g/dl RDW 14 (10.5-15) % Plt Count 247 (150-450) 10^3/ul MPV 9 (7.4-10.4) um3 Neut % (Auto) 69.6 (38-83) % Lymph % (Auto) 19.7 L (25-47) % Dolores % (Auto) 6.9 (1-9) % Eos % (Auto) 2.1 (0-6) % Baso % (Auto) 1.7 (0-2) % Absolute Neuts (auto) 10.0 H (1.5-7.7) 10^3/ul Absolute Lymphs (auto) 2.8 (1.0-4.8) 10^3/ul Absolute Monos (auto) 1.0 H (0-0.8) 10^3/ul Absolute Eos (auto) 0.3 (0-0.6) 10^3/ul Absolute Basos (auto) 0.2 (0-0.2) 10^3/ul Absolute Nucleated RBC 0 10^3/ul Nucleated RBC % 0 INR (Anticoag Therapy) 0.94 (0.89-1.11) APTT 27.5 (26.0-36.3) seconds D-Dimer, Quantitative > 1050 H (Less Than 230) ng/mL Sodium (133-145) mmol/L Potassium (3.5-5.0) mmol/L Chloride (101-111) mmol/L Carbon Dioxide (22-32) mmol/L Anion Gap (2-11) mmol/L BUN (6-24) mg/dL Creatinine (0.67-1.17) mg/dL Est GFR ( Amer) (>60) Est GFR (Non-Af Amer) (>60) BUN/Creatinine Ratio (8-20) Glucose (70-100) mg/dL Lactic Acid (0.5-2.0) mmol/L Calcium (8.6-10.3) mg/dL Magnesium (1.9-2.7) mg/dL Total Bilirubin (0.2-1.0) mg/dL AST (13-39) U/L ALT (7-52) U/L Alkaline Phosphatase (34-104) U/L Total Creatine Kinase (10-223) U/L CK-MB (CK-2) (0.6-6.3) ng/mL Troponin I (<0.04) ng/mL C-Reactive Protein (< 5.00) mg/L B-Natriuretic Peptide ( - 100) pg/mL Total Protein (6.4-8.9) g/dL Albumin (3.2-5.2) g/dL Globulin (2-4) g/dL Albumin/Globulin Ratio (1-3) Lipase (11.0-82.0) U/L TSH (0.34-5.60) mcIU/mL Urine Color Yellow Urine Appearance Cloudy Urine pH 7.0 (5-9) Ur Specific [place] 1.009 L (1.010-1.030) Urine Protein Negative (Negative) Urine Ketones Negative (Negative) Urine Blood Negative (Negative) Urine Nitrate Negative (Negative) Urine Bilirubin Negative (Negative) Urine Urobilinogen Negative (Negative) Ur Leukocyte Esterase 3+ H (Negative) Urine WBC (Auto) 3+(>20/hpf) H (Absent) Urine RBC (Auto) Trace(0-2/hpf) (Absent) Ur Squamous Epith Cells Present H (Absent) Urine Bacteria Absent (Absent) Urine Glucose Negative (Negative) 07/27/16 07/27/16 07/27/16 Range/Units 11:43 11:43 11:43 WBC (3.5-10.8) 10^3/ul RBC (4.0-5.4) 10^6/ul Hgb (14.0-18.0) g/dl Hct (42-52) % MCV (80-94) fL MCH (27-31) pg MCHC (31-36) g/dl RDW (10.5-15) % Plt Count (150-450) 10^3/ul MPV (7.4-10.4) um3 Neut % (Auto) (38-83) % Lymph % (Auto) (25-47) % Dolores % (Auto) (1-9) % Eos % (Auto) (0-6) % Baso % (Auto) (0-2) % Absolute Neuts (auto) (1.5-7.7) 10^3/ul Absolute Lymphs (auto) (1.0-4.8) 10^3/ul Absolute Monos (auto) (0-0.8) 10^3/ul Absolute Eos (auto) (0-0.6) 10^3/ul Absolute Basos (auto) (0-0.2) 10^3/ul Absolute Nucleated RBC 10^3/ul Nucleated RBC % INR (Anticoag Therapy) (0.89-1.11) APTT (26.0-36.3) seconds D-Dimer, Quantitative (Less Than 230) ng/mL Sodium 134 (133-145) mmol/L Potassium 3.8 (3.5-5.0) mmol/L Chloride 102 (101-111) mmol/L Carbon Dioxide 29 (22-32) mmol/L Anion Gap 3 (2-11) mmol/L BUN 16 (6-24) mg/dL Creatinine 1.17 (0.67-1.17) mg/dL Est GFR ( Amer) 79.5 (>60) Est GFR (Non-Af Amer) 61.8 (>60) BUN/Creatinine Ratio 13.7 (8-20) Glucose 79 (70-100) mg/dL Lactic Acid 1.1 (0.5-2.0) mmol/L Calcium 10.3 (8.6-10.3) mg/dL Magnesium 1.8 L (1.9-2.7) mg/dL Total Bilirubin 0.50 (0.2-1.0) mg/dL AST 17 (13-39) U/L ALT 14 (7-52) U/L Alkaline Phosphatase 79 (34-104) U/L Total Creatine Kinase 280 H (10-223) U/L CK-MB (CK-2) 7.6 H (0.6-6.3) ng/mL Troponin I 0.01 (<0.04) ng/mL C-Reactive Protein 5.92 H (< 5.00) mg/L B-Natriuretic Peptide 16 ( - 100) pg/mL Total Protein 7.6 (6.4-8.9) g/dL Albumin 3.8 (3.2-5.2) g/dL Globulin 3.8 (2-4) g/dL Albumin/Globulin Ratio 1.0 (1-3) Lipase 21 (11.0-82.0) U/L TSH 4.71 (0.34-5.60) mcIU/mL Urine Color Urine Appearance Urine pH (5-9) Ur Specific [place] (1.010-1.030) Urine Protein (Negative) Urine Ketones (Negative) Urine Blood (Negative) Urine Nitrate (Negative) Urine Bilirubin (Negative) Urine Urobilinogen (Negative) Ur Leukocyte Esterase (Negative) Urine WBC (Auto) (Absent) Urine RBC (Auto) (Absent) Ur Squamous Epith Cells (Absent) Urine Bacteria (Absent) Urine Glucose (Negative) Assess/Plan/Problems-Billing Assessment: 70 yo M with h/o PVD (h/o stenting of SMA), 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 Just prior to the admission pt had several of those episodes when in his kitchen doing dishes and he had LOC, woke up falling down , sustained a large laceration on his scalp - Patient Problems (1) Syncope and collapse Comment: Apparently cardiology was not able to fit pt in the schedule to have [facility] cardiac monitoring set up this week as initially discussed with Dr. Heredia a week ago. suspect arrythmia, but pt has had no marked EKG changes since admission cont telm. Echo shows EF 55%, mild LVH, mild dilation of RV (2) Chest pain Comment: Likely related ro symptoms of arrythmia. Trops 0.02-0.03 stress shows small area of hypoperfusion inferior wall and EF 76% Awaiting cardiology recommendations cont ASA, start statin for LDL of 100 (monitor for symptoms of myopathy in pt on colchicine) (3) Gout Comment: Continue colchicine. (4) DVT prophylaxis Comment: heparin sc
[2016-07-28] MEDS: Atorvastatin* 20 MG TAB PO SCH (20:28)
--- NOTE | 2016-07-28 20:45 | CONSULT ---
Subjective Date of Service: 07/28/16 Interval History: Consult date 07/28/2016 Service Hospitalist Milton Asif [employer]ILRO[employer] BRAKE OPERATOR is PCP Office Services Coordinator Dr. Gaffney CC: palpitations with syncope Reason for consult: palpitations with syncope. HPI Mr. Crain is a 70 year old man with reported atrial tachycardia. He has had about 12 to 14 years of fast racing regular heart rate associated with dizziness , headrush, and chest discomfort. It usually lasts for minute to an hour. It can come at any time such as watching TV, etc. It usually slows down then chest pounds very hard for a few more minutes then resolves. Last 6 months has been having more frequent episodes. Last was at Dr. Britt office for PAD intervention follow up. He had mentioned these symptoms that happened 8 or 9 times that morning. He ultimately ended up in the ER eventually and had a an unremarkable brain CT. Yesterday had the recurrent symptoms while doing dishes. He says he knows he should have sat down but didn't and ultimately synopized and had a head laceration. He ruled out for ACS. His EKG shows RBBB which is not new. TTE shows normal LV size and function and no significant valvular abnormality, RV was mildly dilated with mildly reduced function. CTA no PE. Stress test reported by radiologist small fixed inferior defect. His telemetry monitoring shows sinus bradycardia but no arrhythmias and he has had no symptoms here. Of note had been on brillinta for PAD but made dyspneic now stopped. Denies any exertional CP, lightheadedness, dyspnea or syncope. PAST MEDICAL HISTORY: Significant for: 1. PVD. 2. GERD. 3. CVA. 4. Gout. PAST SURGICAL HISTORY: He has had 6 months ago a stent to his left leg with Dr. Britt. HOME MEDICATIONS: Include: 1. Aspirin 81 mg daily. 2. Protonix 40 mg daily. 3. Colchicine 0.6 mg p.o. daily. ALLERGIES TO MEDICATIONS: Include no known drug allergies. FAMILY HISTORY: His father did have a heart attack. Mother's history was reviewed and noncontributory. SOCIAL HISTORY: He is a former smoker. He does not drink alcohol. He lives alone. Surrogate decision maker is his sister. 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 [employer] Medications Active Medications: Acetaminophen (Tylenol Tab*) 650 mg PO Q4H PRN PRN Reason: FEVER/PAIN Last Admin: 07/27/16 15:52 Dose: 650 mg Aspirin (Aspirin Ec Low Dose*) 81 mg PO QAM [facility] Last Admin: 07/28/16 10:45 Dose: Not Given Atorvastatin Calcium (Lipitor*) 20 mg PO 2100 [facility] Last Admin: 07/28/16 20:28 Dose: 20 mg Colchicine (Colcrys*) 0.6 mg PO QAM [facility] Last Admin: 07/28/16 10:45 Dose: Not Given Heparin Sodium (Porcine) (Heparin Vial(*)) 5,000 units SUBCUT Q8HR [facility] Last Admin: 07/28/16 20:08 Dose: Not Given Iohexol (Omnipaque 350 (Contrast)-) 69 ml IV ONCE [facility] Stop: 07/30/16 08:53 Last Admin: 07/28/16 09:44 Dose: 69 ml Metoprolol Succinate (Toprol Xl Tab*) 12.5 mg PO DAILY [facility] Omeprazole (Prilosec Cap*) 20 mg PO BID [facility] Last Admin: 07/28/16 20:28 Dose: 20 mg Ondansetron HCl (Zofran Inj*) 4 mg IV Q6H PRN PRN Reason: NAUSEA Oxycodone/Acetaminophen (Percocet 5/325 Tab*) 1 tab PO Q4H PRN PRN Reason: PAIN Last Admin: 07/27/16 19:10 Dose: 1 tab Home Medications: Colchicine* [Colcrys*] 0.6 mg PO [facility] 06/11/14 [History Confirmed 07/27/16] Pantoprazole TAB (NF) [Protonix TAB (NF)] 40 mg PO [facility] 06/11/14 [History Confirmed 07/27/16] Aspirin EC Low Dose* [Ecotrin EC Low Dose*] 81 mg PO QA 03/17/16 [History Confirmed 07/27/16] plavix Review of Systems - Measurements Intake and Output: Intake and Output Last 24 Hours 07/26/16 07/27/16 07/28/16 07/29/16 06:59 06:59 06:59 06:59 Intake Total 3501 0 Output Total 1200 200 Balance 2301 -200 Weight 172 lb 172 lb Intake: IV Fluids 2701 NS (0.9%) 951 Oral 800 0 Output: Urine 1200 200 Other: # Bowel Movements 0 # Voids 0 - Review of Systems Constitutional Symptoms: Positive: Unexplained Falls Negative: Weight Gain, Weight Loss, Weakness, Fatigue, Fever, Night Sweats Dermatology: Negative: Rash, Skin Lesions, Cancer, Skin Lumps HEENT: Negative: Change in Hearing, Vertigo, Tinnitus Eyes: Negative: Change in Vision, Double Vision Thyroid: Negative: Goiter, Thyroid Nodule, Cold Intolerance, Heat Intolerance, Sweatiness, Tremor, Frequent Defecation, Constipation, Palpitations, Weight Loss , Weight Gain Pulmonary: Negative: Cough, Sputum, Hemoptysis, Wheezing, Respiratory Distress, Shortness of Breath, COPD Cardiology: Positive: Chest Pain, Palpitations, Peripheral Vascular Dis, Faintness, Syncope Negative: Normal, Shortness of Breath, Swelling of Ankles, Edema, Claudication, Paroxysmal Nocturnal Dyspnea, Orthopnea Gastroenterology: Negative: Abdominal Pain, Nausea, Indigestion, Difficulty Swallowing, Heartburn, Constipation, Diarrhea, Haematemesis, Melena Genital - Urinary: Negative: Dysuria, Hematuria Musculoskeletal: Negative: Joint Pain, Joint Stiffness, Arthritis, Osteoporosis Endocrinology: Negative: Thyroid Problems, Obesity, Diabetes, Hyperglycemia, Hypoglycemia, Diabetic Foot Ulcers, Calluses, Polydipsia, Polyuria Hematologic/Lymphatic: Positive: Use of Antiplatelet Drugs Negative: Anemia, Easy Brusing, Hx Leukemia, Hx Lymphoma, Use of Anticoagulant Neurology: Positive: Hx of Stroke\TIA Negative: Headaches, Change in Vision, Diplopia, Dizziness, Change in Balancing, Change in Coordination, Change in Memory, Change in Speech, Change in Sphincter Function, Change in Walking, Numbness\Paresthesiae, Hx Seizures Psychiatry: Negative: Depressed Mood, Adhedonia, Guilt Feelings, Tearfulness, Unusual Anxiety, Suicidal Ideation Allergic/Immunologic: Negative: Hx Anaphylaxis, Hx Angioedema, Hx Environmental Allergies, Hx Seasonal Allergies, Hx HIV, Immunocompromise Review of Systems Statement: All other review of systems negative, unless stated above. Objective Vital Signs: Temp Pulse Resp BP Pulse Ox 98.3 F 62 16 112/57 98 07/28/16 19:48 07/28/16 19:48 07/28/16 19:48 07/28/16 19:48 07/28/16 19:48 Oxygen Devices in Use Now: None Appearance: nad, pleasant Ears/Nose/Mouth/Throat: Clear Oropharnyx, Mucous Membranes Moist Neck: NL Appearance and Movements; NL JVP, Trachea Midline Respiratory: Symmetrical Chest Expansion and Respiratory Effort, Clear to Auscultation Cardiovascular: NL Sounds; No Murmurs; No JVD, RRR, No Edema Abdominal: NL Sounds; No Tenderness; No Distention Extremities: No Edema Skin: No Rash or Ulcers Neurological: Alert and Oriented x 3, NL Sensation Laboratory Results: 07/28/16 05:57 07/28/16 05:57 INR (Anticoag Therapy) 0.94 (0.89-1.11) 07/27/16 11:43 APTT 27.5 seconds (26.0-36.3) 07/27/16 11:43 Total Bilirubin 0.50 mg/dL (0.2-1.0) 07/27/16 11:43 AST 17 U/L (13-39) 07/27/16 11:43 ALT 14 U/L (7-52) 07/27/16 11:43 Alkaline Phosphatase 79 U/L (34-104) 07/27/16 11:43 CK-MB (CK-2) 7.6 ng/mL (0.6-6.3) H 07/27/16 11:43 B-Natriuretic Peptide 16 pg/mL (-100) 07/27/16 11:43 Total Protein 7.6 g/dL (6.4-8.9) 07/27/16 11:43 Albumin 3.8 g/dL (3.2-5.2) 07/27/16 11:43 Globulin 3.8 g/dL (2-4) 07/27/16 11:43 Albumin/Globulin Ratio 1.0 (1-3) 07/27/16 11:43 Triglycerides 141 mg/dL 07/28/16 05:57 Cholesterol 155 mg/dL 07/28/16 05:57 LDL Cholesterol 100 mg/dL 07/28/16 05:57 HDL Cholesterol 27.0 mg/dL 07/28/16 05:57 TSH 4.71 mcIU/mL (0.34-5.60) 07/27/16 11:43 07/27/16 07/27/16 15:38 16:51 Troponin I 0.02 0.03 Assessment/Plan 70 year old man with history as above admitted with syncope during prolonged episode of longstanding intermittent palpitations. Highly suspect SVT based on history. 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 Gaffney 08/03/2016 for further evaluation and management. Pending clinical course could consider longer term rhythm monitoring vs. EP study. - He has had both a stroke and PAD and would benefit from an intensive dose statin Thank you for allowing me to participate in the cardiovascular care of this patient. Please do not hesitate to contact me with questions or concerns.
[2016-07-28] MEDS: Metoprolol Succinate XL TAB* 25 MG PO SCH (20:50)
[2016-07-28] MEDS ORDERED: Metoprolol Tartrate TAB* 25 MG PO SCH (21:00)
[2016-07-29] MEDS: Heparin VIAL(*) 5000 UNITS/ML VIAL (FIVE THOUSAND) SUBCUT SCH ×3 (05:50→20:41)
[2016-07-29] MEDS: Aspirin EC Low Dose* 81 MG TAB.EC PO SCH (08:25)
[2016-07-29] MEDS: Colchicine* 0.6 MG TAB PO SCH (08:25)
[2016-07-29] MEDS: Omeprazole CAP* 20 MG PO SCH ×2 (08:25→20:40)
[2016-07-29] MEDS: Metoprolol Succinate XL TAB* 25 MG PO SCH (09:28)
--- NOTE | 2016-07-29 10:53 | PN ---
Subjective Date of Service: 07/29/16 - CC: fainting, palpitations. Interval History: No further episodes of racing heart, no syncope. Presentation this time: the patient had been up for an hour, was washing dishes and his heart started to race, he then felt a echols to his head and his usual prodrome. This happens about 10 times a week and he doesn't always sit down. 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 No associated caffiene, alcohol, OTC meds. Medications Active Medications: Acetaminophen (Tylenol Tab*) 650 mg PO Q4H PRN PRN Reason: FEVER/PAIN Last Admin: 07/27/16 15:52 Dose: 650 mg Aspirin (Aspirin Ec Low Dose*) 81 mg PO QAM [facility] Last Admin: 07/29/16 08:25 Dose: 81 mg Atorvastatin Calcium (Lipitor*) 20 mg PO 2100 [facility] Last Admin: 07/28/16 20:28 Dose: 20 mg Colchicine (Colcrys*) 0.6 mg PO QAM [facility] Last Admin: 07/29/16 08:25 Dose: 0.6 mg Heparin Sodium (Porcine) (Heparin Vial(*)) 5,000 units SUBCUT Q8HR [facility] Last Admin: 07/29/16 05:50 Dose: Not Given Iohexol (Omnipaque 350 (Contrast)-) 69 ml IV ONCE [facility] Stop: 07/30/16 08:53 Last Admin: 07/28/16 09:44 Dose: 69 ml Metoprolol Succinate (Toprol Xl Tab*) 12.5 mg PO DAILY [facility] Last Admin: 07/29/16 09:28 Dose: Not Given Omeprazole (Prilosec Cap*) 20 mg PO BID [facility] Last Admin: 07/29/16 08:25 Dose: 20 mg Ondansetron HCl (Zofran Inj*) 4 mg IV Q6H PRN PRN Reason: NAUSEA Oxycodone/Acetaminophen (Percocet 5/325 Tab*) 1 tab PO Q4H PRN PRN Reason: PAIN Last Admin: 07/27/16 19:10 Dose: 1 tab Objective Vital Signs: Temp Pulse Resp BP Pulse Ox 99.5 F 51 16 112/61 95 07/29/16 07:52 07/29/16 07:52 07/29/16 07:52 07/29/16 07:52 07/29/16 07:52 Oxygen Devices in Use Now: None Appearance: walking the halls, normal gate, appears comfortable. Eyes: PERRLA Ears/Nose/Mouth/Throat: Clear Oropharnyx, Mucous Membranes Moist Neck: NL Appearance and Movements; NL JVP, Trachea Midline Respiratory: Symmetrical Chest Expansion and Respiratory Effort, Clear to Auscultation Cardiovascular: NL Sounds; No Murmurs; No JVD, RRR, No Edema Abdominal: NL Sounds; No Tenderness; No Distention Extremities: No Edema Skin: No Rash or Ulcers Neurological: Alert and Oriented x 3, NL Sensation Lines/Tubes/Other Access: Clean, Dry and Intact Peripheral IV Laboratory Results: 07/28/16 05:57 07/28/16 05:57 INR (Anticoag Therapy) 0.94 (0.89-1.11) 07/27/16 11:43 APTT 27.5 seconds (26.0-36.3) 07/27/16 11:43 Total Bilirubin 0.50 mg/dL (0.2-1.0) 07/27/16 11:43 AST 17 U/L (13-39) 07/27/16 11:43 ALT 14 U/L (7-52) 07/27/16 11:43 Alkaline Phosphatase 79 U/L (34-104) 07/27/16 11:43 CK-MB (CK-2) 7.6 ng/mL (0.6-6.3) H 07/27/16 11:43 B-Natriuretic Peptide 16 pg/mL (-100) 07/27/16 11:43 Total Protein 7.6 g/dL (6.4-8.9) 07/27/16 11:43 Albumin 3.8 g/dL (3.2-5.2) 07/27/16 11:43 Globulin 3.8 g/dL (2-4) 07/27/16 11:43 Albumin/Globulin Ratio 1.0 (1-3) 07/27/16 11:43 Triglycerides 141 mg/dL 07/28/16 05:57 Cholesterol 155 mg/dL 07/28/16 05:57 LDL Cholesterol 100 mg/dL 07/28/16 05:57 HDL Cholesterol 27.0 mg/dL 07/28/16 05:57 TSH 4.71 mcIU/mL (0.34-5.60) 07/27/16 11:43 07/27/16 07/27/16 15:38 16:51 Troponin I 0.02 0.03 Diagnostic Imaging: This admission: Nuclear study: chemical nuclear stress: EF 76%, small fixed inferior apical defect. No ischemia. Echo: LVEF 55-60%, RV mildly dilated and hypokinetic, AV sclerosis, normal valve function of all valves. EKG Data: NSR, RBBB, bradycardia 40's, no ectopy. Assessment/Plan 70 year old man with history as above, longstanding hx palpitations, near syncope and syncope as well as PVD admitted with syncope during an episode of palpitations/racing with his typical prodrome. History suggestive of tachycardic induced syncope/ symptoms, but not highly suggestive of POTS as this can happen sitting and in this instance the patient had been standing for an hour. Points of Discussion: Racing heart and syncope: Tolerating low dose beta derek, continue. I recommend external EM as the patient has frequent symptoms. Unable to get a Holter through [facility] over the weekend ( nursing contacted). Unable to get a [employer] Seeq over the weekend ([employer] contacted). No mechanism w/in [employer] to get an outpatient EM over the weekend Options include Holter Monitor via [facility]/ Sunday and outpatient scheduling of external EM. Normal LVEF and low risk stress test is reassuring wrt to low risk of life threating dysrhythmias, but the patient is at risk for recurrent syncope, especially if he does not use antigravity measures with each event. Additionally consider referral to an EP for EPS to induce and map the dysrhythmia and potentially ablate. RVE on echo and RBBB: raises the possibility of an ASD, consider a peripheral bubble study in or out patient to follow up. PVD: see Dr. Dumont's note wrt lipid management.
--- NOTE | 2016-07-29 12:42 | PN ---
Subjective Date of Service: 07/29/16 Interval History: Pt has had no episodes of arrhythmia since admission. no new complaints. Objective Active Medications: Acetaminophen (Tylenol Tab*) 650 mg PO Q4H PRN PRN Reason: FEVER/PAIN Last Admin: 07/27/16 15:52 Dose: 650 mg Aspirin (Aspirin Ec Low Dose*) 81 mg PO QAM [facility] Last Admin: 07/29/16 08:25 Dose: 81 mg Atorvastatin Calcium (Lipitor*) 20 mg PO 2100 [facility] Last Admin: 07/28/16 20:28 Dose: 20 mg Colchicine (Colcrys*) 0.6 mg PO QAM [facility] Last Admin: 07/29/16 08:25 Dose: 0.6 mg Heparin Sodium (Porcine) (Heparin Vial(*)) 5,000 units SUBCUT Q8HR [facility] Last Admin: 07/29/16 05:50 Dose: Not Given Iohexol (Omnipaque 350 (Contrast)-) 69 ml IV ONCE [facility] Stop: 07/30/16 08:53 Last Admin: 07/28/16 09:44 Dose: 69 ml Metoprolol Succinate (Toprol Xl Tab*) 12.5 mg PO DAILY [facility] Last Admin: 07/29/16 09:28 Dose: Not Given Omeprazole (Prilosec Cap*) 20 mg PO BID [facility] Last Admin: 07/29/16 08:25 Dose: 20 mg Ondansetron HCl (Zofran Inj*) 4 mg IV Q6H PRN PRN Reason: NAUSEA Oxycodone/Acetaminophen (Percocet 5/325 Tab*) 1 tab PO Q4H PRN PRN Reason: PAIN Last Admin: 07/27/16 19:10 Dose: 1 tab Vital Signs 07/28/16 07/28/16 07/28/16 16:15 19:48 23:24 Temperature 98.2 F 98.3 F 98.2 F Pulse Rate 62 62 56 Respiratory 16 16 16 Rate Blood Pressure 144/63 112/57 111/62 (mmHg) O2 Sat by Pulse 97 98 97 Oximetry 07/29/16 07/29/16 07/29/16 03:18 07:52 08:00 Temperature 98.4 F 99.5 F Pulse Rate 57 51 Respiratory 16 16 16 Rate Blood Pressure 114/57 112/61 (mmHg) O2 Sat by Pulse 96 95 Oximetry Oxygen Devices in Use Now: None Appearance: 70 yo m in NAD, aAOx3 Eyes: No Scleral Icterus, PERRLA Ears/Nose/Mouth/Throat: NL Teeth, Lips, Gums, Mucous Membranes Moist Neck: NL Appearance and Movements; NL JVP, Trachea Midline Respiratory: Symmetrical Chest Expansion and Respiratory Effort, Clear to Auscultation Cardiovascular: NL Sounds; No Murmurs; No JVD, RRR Abdominal: NL Sounds; No Tenderness; No Distention, No Hepatosplenomegaly Lymphatic: No Cervical Adenopathy Extremities: No Edema, No Clubbing, Cyanosis Skin: No Nodules or Sclerosis, - - R occipital area stapled laceration-no dehiscence Neurological: Alert and Oriented x 3, NL Muscle Strength and Tone Result Diagrams: 07/28/16 05:57 07/28/16 05:57 Additional Lab and Data: Lab Results 07/27/16 07/27/16 07/27/16 Range/Units 10:49 11:43 11:43 WBC 14.4 H (3.5-10.8) 10^3/ul RBC 5.04 (4.0-5.4) 10^6/ul Hgb 15.2 (14.0-18.0) g/dl Hct 45 (42-52) % MCV 90 (80-94) fL MCH 30 (27-31) pg MCHC 34 (31-36) g/dl RDW 14 (10.5-15) % Plt Count 247 (150-450) 10^3/ul MPV 9 (7.4-10.4) um3 Neut % (Auto) 69.6 (38-83) % Lymph % (Auto) 19.7 L (25-47) % [place] % (Auto) 6.9 (1-9) % Eos % (Auto) 2.1 (0-6) % Baso % (Auto) 1.7 (0-2) % Absolute Neuts (auto) 10.0 H (1.5-7.7) 10^3/ul Absolute Lymphs (auto) 2.8 (1.0-4.8) 10^3/ul Absolute Monos (auto) 1.0 H (0-0.8) 10^3/ul Absolute Eos (auto) 0.3 (0-0.6) 10^3/ul Absolute Basos (auto) 0.2 (0-0.2) 10^3/ul Absolute Nucleated RBC 0 10^3/ul Nucleated RBC % 0 INR (Anticoag Therapy) 0.94 (0.89-1.11) APTT 27.5 (26.0-36.3) seconds D-Dimer, Quantitative > 1050 H (Less Than 230) ng/mL Sodium (133-145) mmol/L Potassium (3.5-5.0) mmol/L Chloride (101-111) mmol/L Carbon Dioxide (22-32) mmol/L Anion Gap (2-11) mmol/L BUN (6-24) mg/dL Creatinine (0.67-1.17) mg/dL Est GFR ( Amer) (>60) Est GFR (Non-Af Amer) (>60) BUN/Creatinine Ratio (8-20) Glucose (70-100) mg/dL Lactic Acid (0.5-2.0) mmol/L Calcium (8.6-10.3) mg/dL Magnesium (1.9-2.7) mg/dL Total Bilirubin (0.2-1.0) mg/dL AST (13-39) U/L ALT (7-52) U/L Alkaline Phosphatase (34-104) U/L Total Creatine Kinase (10-223) U/L CK-MB (CK-2) (0.6-6.3) ng/mL Troponin I (<0.04) ng/mL C-Reactive Protein (< 5.00) mg/L B-Natriuretic Peptide ( - 100) pg/mL Total Protein (6.4-8.9) g/dL Albumin (3.2-5.2) g/dL Globulin (2-4) g/dL Albumin/Globulin Ratio (1-3) Lipase (11.0-82.0) U/L TSH (0.34-5.60) mcIU/mL Urine Color Yellow Urine Appearance Cloudy Urine pH 7.0 (5-9) Ur Specific [place] 1.009 L (1.010-1.030) Urine Protein Negative (Negative) Urine Ketones Negative (Negative) Urine Blood Negative (Negative) Urine Nitrate Negative (Negative) Urine Bilirubin Negative (Negative) Urine Urobilinogen Negative (Negative) Ur Leukocyte Esterase 3+ H (Negative) Urine WBC (Auto) 3+(>20/hpf) H (Absent) Urine RBC (Auto) Trace(0-2/hpf) (Absent) Ur Squamous Epith Cells Present H (Absent) Urine Bacteria Absent (Absent) Urine Glucose Negative (Negative) 07/27/16 07/27/16 07/27/16 Range/Units 11:43 11:43 11:43 WBC (3.5-10.8) 10^3/ul RBC (4.0-5.4) 10^6/ul Hgb (14.0-18.0) g/dl Hct (42-52) % MCV (80-94) fL MCH (27-31) pg MCHC (31-36) g/dl RDW (10.5-15) % Plt Count (150-450) 10^3/ul MPV (7.4-10.4) um3 Neut % (Auto) (38-83) % Lymph % (Auto) (25-47) % [place] % (Auto) (1-9) % Eos % (Auto) (0-6) % Baso % (Auto) (0-2) % Absolute Neuts (auto) (1.5-7.7) 10^3/ul Absolute Lymphs (auto) (1.0-4.8) 10^3/ul Absolute Monos (auto) (0-0.8) 10^3/ul Absolute Eos (auto) (0-0.6) 10^3/ul Absolute Basos (auto) (0-0.2) 10^3/ul Absolute Nucleated RBC 10^3/ul Nucleated RBC % INR (Anticoag Therapy) (0.89-1.11) APTT (26.0-36.3) seconds D-Dimer, Quantitative (Less Than 230) ng/mL Sodium 134 (133-145) mmol/L Potassium 3.8 (3.5-5.0) mmol/L Chloride 102 (101-111) mmol/L Carbon Dioxide 29 (22-32) mmol/L Anion Gap 3 (2-11) mmol/L BUN 16 (6-24) mg/dL Creatinine 1.17 (0.67-1.17) mg/dL Est GFR ( Amer) 79.5 (>60) Est GFR (Non-Af Amer) 61.8 (>60) BUN/Creatinine Ratio 13.7 (8-20) Glucose 79 (70-100) mg/dL Lactic Acid 1.1 (0.5-2.0) mmol/L Calcium 10.3 (8.6-10.3) mg/dL Magnesium 1.8 L (1.9-2.7) mg/dL Total Bilirubin 0.50 (0.2-1.0) mg/dL AST 17 (13-39) U/L ALT 14 (7-52) U/L Alkaline Phosphatase 79 (34-104) U/L Total Creatine Kinase 280 H (10-223) U/L CK-MB (CK-2) 7.6 H (0.6-6.3) ng/mL Troponin I 0.01 (<0.04) ng/mL C-Reactive Protein 5.92 H (< 5.00) mg/L B-Natriuretic Peptide 16 ( - 100) pg/mL Total Protein 7.6 (6.4-8.9) g/dL Albumin 3.8 (3.2-5.2) g/dL Globulin 3.8 (2-4) g/dL Albumin/Globulin Ratio 1.0 (1-3) Lipase 21 (11.0-82.0) U/L TSH 4.71 (0.34-5.60) mcIU/mL Urine Color Urine Appearance Urine pH (5-9) Ur Specific [place] (1.010-1.030) Urine Protein (Negative) Urine Ketones (Negative) Urine Blood (Negative) Urine Nitrate (Negative) Urine Bilirubin (Negative) Urine Urobilinogen (Negative) Ur Leukocyte Esterase (Negative) Urine WBC (Auto) (Absent) Urine RBC (Auto) (Absent) Ur Squamous Epith Cells (Absent) Urine Bacteria (Absent) Urine Glucose (Negative) Assess/Plan/Problems-Billing Assessment: 70 yo M with h/o PVD (h/o stenting of SMA), 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 Just prior to the admission pt had several of those episodes when in his kitchen doing dishes and he had LOC, woke up falling down , sustained a large laceration on his scalp - Patient Problems (1) Syncope and collapse Comment: apreciate Dr. Pena and Dr. Dumont's consults. Echo shows EF 55%, mild LVH, mild dilation of RV There is no mechanism in place to get pt holter over the weekend. Spoke with pt about potential discharge this weekend vs continuation of telem monitorting and holter on Sunday. Pt is more comfortable with staying over the weekend -which is also safest for pt. (2) Chest pain Comment: Likely related ro symptoms of arrythmia. Trops 0.02-0.03 stress shows small area of hypoperfusion inferior wall and EF 76% cont ASA, started statin for LDL of 100 (monitor for symptoms of myopathy in pt on colchicine) (3) Gout Comment: Continue colchicine. (4) DVT prophylaxis Comment: heparin sc Status and Disposition: obv changed to inpatient due to need for further tlem monitoring
[2016-07-29] MEDS: Atorvastatin* 20 MG TAB PO SCH (20:40)
[2016-07-30] MEDS: Heparin VIAL(*) 5000 UNITS/ML VIAL (FIVE THOUSAND) SUBCUT SCH ×3 (05:11→21:45)
[2016-07-30] MEDS: Aspirin EC Low Dose* 81 MG TAB.EC PO SCH (08:17)
[2016-07-30] MEDS: Omeprazole CAP* 20 MG PO SCH ×2 (08:17→21:44)
[2016-07-30] MEDS: Colchicine* 0.6 MG TAB PO SCH (08:17)
[2016-07-30] MEDS: Metoprolol Succinate XL TAB* 25 MG PO SCH (08:17)
--- NOTE | 2016-07-30 13:05 | PN ---
Subjective Date of Service: 07/30/16 Interval History: continues to have no symptoms of palpitations. Occasional PVC's noted on monitor. Objective Active Medications: Acetaminophen (Tylenol Tab*) 650 mg PO Q4H PRN PRN Reason: FEVER/PAIN Last Admin: 07/27/16 15:52 Dose: 650 mg Aspirin (Aspirin Ec Low Dose*) 81 mg PO QAM [facility] Last Admin: 07/30/16 08:17 Dose: 81 mg Atorvastatin Calcium (Lipitor*) 20 mg PO 2100 [facility] Last Admin: 07/29/16 20:40 Dose: 20 mg Colchicine (Colcrys*) 0.6 mg PO QAM [facility] Last Admin: 07/30/16 08:17 Dose: 0.6 mg Heparin Sodium (Porcine) (Heparin Vial(*)) 5,000 units SUBCUT Q8HR [facility] Last Admin: 07/30/16 05:11 Dose: 5,000 units Metoprolol Succinate (Toprol Xl Tab*) 12.5 mg PO DAILY [facility] Last Admin: 07/30/16 08:17 Dose: 12.5 mg Omeprazole (Prilosec Cap*) 20 mg PO BID [facility] Last Admin: 07/30/16 08:17 Dose: 20 mg Ondansetron HCl (Zofran Inj*) 4 mg IV Q6H PRN PRN Reason: NAUSEA Oxycodone/Acetaminophen (Percocet 5/325 Tab*) 1 tab PO Q4H PRN PRN Reason: PAIN Last Admin: 07/27/16 19:10 Dose: 1 tab Vital Signs 07/29/16 07/29/16 07/29/16 15:16 16:13 19:14 Temperature 98.1 F 98.0 F Pulse Rate 60 54 Respiratory 16 18 16 Rate Blood Pressure 120/61 123/56 (mmHg) O2 Sat by Pulse 96 96 Oximetry 07/29/16 07/30/16 07/30/16 19:31 00:25 03:46 Temperature 97.4 F 98.3 F Pulse Rate 56 59 Respiratory 18 16 16 Rate Blood Pressure 121/51 121/57 (mmHg) O2 Sat by Pulse 96 96 Oximetry 07/30/16 07/30/16 07/30/16 07:31 08:00 11:13 Temperature 98.5 F 98.1 F Pulse Rate 52 56 Respiratory 18 18 18 Rate Blood Pressure 122/60 117/68 (mmHg) O2 Sat by Pulse 95 100 Oximetry Oxygen Devices in Use Now: None Appearance: 70 yo M in nAd, aAOx3 Eyes: No Scleral Icterus, PERRLA Ears/Nose/Mouth/Throat: NL Teeth, Lips, Gums, Mucous Membranes Moist Neck: NL Appearance and Movements; NL JVP, Trachea Midline Respiratory: Symmetrical Chest Expansion and Respiratory Effort, Clear to Auscultation Cardiovascular: NL Sounds; No Murmurs; No JVD, RRR Abdominal: NL Sounds; No Tenderness; No Distention, No Hepatosplenomegaly Lymphatic: No Cervical Adenopathy Extremities: No Edema, No Clubbing, Cyanosis Skin: No Nodules or Sclerosis, - - R occipital laceration stapled, no dehiscence noted Neurological: Alert and Oriented x 3, NL Muscle Strength and Tone Result Diagrams: 07/28/16 05:57 07/28/16 05:57 Additional Lab and Data: Lab Results 07/27/16 07/27/16 07/27/16 Range/Units 10:49 11:43 11:43 WBC 14.4 H (3.5-10.8) 10^3/ul RBC 5.04 (4.0-5.4) 10^6/ul Hgb 15.2 (14.0-18.0) g/dl Hct 45 (42-52) % MCV 90 (80-94) fL MCH 30 (27-31) pg MCHC 34 (31-36) g/dl RDW 14 (10.5-15) % Plt Count 247 (150-450) 10^3/ul MPV 9 (7.4-10.4) um3 Neut % (Auto) 69.6 (38-83) % Lymph % (Auto) 19.7 L (25-47) % [place] % (Auto) 6.9 (1-9) % Eos % (Auto) 2.1 (0-6) % Baso % (Auto) 1.7 (0-2) % Absolute Neuts (auto) 10.0 H (1.5-7.7) 10^3/ul Absolute Lymphs (auto) 2.8 (1.0-4.8) 10^3/ul Absolute Monos (auto) 1.0 H (0-0.8) 10^3/ul Absolute Eos (auto) 0.3 (0-0.6) 10^3/ul Absolute Basos (auto) 0.2 (0-0.2) 10^3/ul Absolute Nucleated RBC 0 10^3/ul Nucleated RBC % 0 INR (Anticoag Therapy) 0.94 (0.89-1.11) APTT 27.5 (26.0-36.3) seconds D-Dimer, Quantitative > 1050 H (Less Than 230) ng/mL Sodium (133-145) mmol/L Potassium (3.5-5.0) mmol/L Chloride (101-111) mmol/L Carbon Dioxide (22-32) mmol/L Anion Gap (2-11) mmol/L BUN (6-24) mg/dL Creatinine (0.67-1.17) mg/dL Est GFR ( Amer) (>60) Est GFR (Non-Af Amer) (>60) BUN/Creatinine Ratio (8-20) Glucose (70-100) mg/dL Lactic Acid (0.5-2.0) mmol/L Calcium (8.6-10.3) mg/dL Magnesium (1.9-2.7) mg/dL Total Bilirubin (0.2-1.0) mg/dL AST (13-39) U/L ALT (7-52) U/L Alkaline Phosphatase (34-104) U/L Total Creatine Kinase (10-223) U/L CK-MB (CK-2) (0.6-6.3) ng/mL Troponin I (<0.04) ng/mL C-Reactive Protein (< 5.00) mg/L B-Natriuretic Peptide ( - 100) pg/mL Total Protein (6.4-8.9) g/dL Albumin (3.2-5.2) g/dL Globulin (2-4) g/dL Albumin/Globulin Ratio (1-3) Lipase (11.0-82.0) U/L TSH (0.34-5.60) mcIU/mL Urine Color Yellow Urine Appearance Cloudy Urine pH 7.0 (5-9) Ur Specific [place] 1.009 L (1.010-1.030) Urine Protein Negative (Negative) Urine Ketones Negative (Negative) Urine Blood Negative (Negative) Urine Nitrate Negative (Negative) Urine Bilirubin Negative (Negative) Urine Urobilinogen Negative (Negative) Ur Leukocyte Esterase 3+ H (Negative) Urine WBC (Auto) 3+(>20/hpf) H (Absent) Urine RBC (Auto) Trace(0-2/hpf) (Absent) Ur Squamous Epith Cells Present H (Absent) Urine Bacteria Absent (Absent) Urine Glucose Negative (Negative) 07/27/16 07/27/16 07/27/16 Range/Units 11:43 11:43 11:43 WBC (3.5-10.8) 10^3/ul RBC (4.0-5.4) 10^6/ul Hgb (14.0-18.0) g/dl Hct (42-52) % MCV (80-94) fL MCH (27-31) pg MCHC (31-36) g/dl RDW (10.5-15) % Plt Count (150-450) 10^3/ul MPV (7.4-10.4) um3 Neut % (Auto) (38-83) % Lymph % (Auto) (25-47) % [place] % (Auto) (1-9) % Eos % (Auto) (0-6) % Baso % (Auto) (0-2) % Absolute Neuts (auto) (1.5-7.7) 10^3/ul Absolute Lymphs (auto) (1.0-4.8) 10^3/ul Absolute Monos (auto) (0-0.8) 10^3/ul Absolute Eos (auto) (0-0.6) 10^3/ul Absolute Basos (auto) (0-0.2) 10^3/ul Absolute Nucleated RBC 10^3/ul Nucleated RBC % INR (Anticoag Therapy) (0.89-1.11) APTT (26.0-36.3) seconds D-Dimer, Quantitative (Less Than 230) ng/mL Sodium 134 (133-145) mmol/L Potassium 3.8 (3.5-5.0) mmol/L Chloride 102 (101-111) mmol/L Carbon Dioxide 29 (22-32) mmol/L Anion Gap 3 (2-11) mmol/L BUN 16 (6-24) mg/dL Creatinine 1.17 (0.67-1.17) mg/dL Est GFR ( Amer) 79.5 (>60) Est GFR (Non-Af Amer) 61.8 (>60) BUN/Creatinine Ratio 13.7 (8-20) Glucose 79 (70-100) mg/dL Lactic Acid 1.1 (0.5-2.0) mmol/L Calcium 10.3 (8.6-10.3) mg/dL Magnesium 1.8 L (1.9-2.7) mg/dL Total Bilirubin 0.50 (0.2-1.0) mg/dL AST 17 (13-39) U/L ALT 14 (7-52) U/L Alkaline Phosphatase 79 (34-104) U/L Total Creatine Kinase 280 H (10-223) U/L CK-MB (CK-2) 7.6 H (0.6-6.3) ng/mL Troponin I 0.01 (<0.04) ng/mL C-Reactive Protein 5.92 H (< 5.00) mg/L B-Natriuretic Peptide 16 ( - 100) pg/mL Total Protein 7.6 (6.4-8.9) g/dL Albumin 3.8 (3.2-5.2) g/dL Globulin 3.8 (2-4) g/dL Albumin/Globulin Ratio 1.0 (1-3) Lipase 21 (11.0-82.0) U/L TSH 4.71 (0.34-5.60) mcIU/mL Urine Color Urine Appearance Urine pH (5-9) Ur Specific [place] (1.010-1.030) Urine Protein (Negative) Urine Ketones (Negative) Urine Blood (Negative) Urine Nitrate (Negative) Urine Bilirubin (Negative) Urine Urobilinogen (Negative) Ur Leukocyte Esterase (Negative) Urine WBC (Auto) (Absent) Urine RBC (Auto) (Absent) Ur Squamous Epith Cells (Absent) Urine Bacteria (Absent) Urine Glucose (Negative) Assess/Plan/Problems-Billing Assessment: 70 yo M with h/o PVD (h/o stenting of SMA), 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 Just prior to the admission pt had several of those episodes when in his kitchen doing dishes and he had LOC, woke up falling down , sustained a large laceration on his scalp - Patient Problems (1) Syncope and collapse Comment: apreciate Dr. Pena and Dr. Dumont's consults. Lopressor started. Echo shows EF 55%, mild LVH, mild dilation of RV There is no mechanism in place to get pt holter over the weekend. Spoke with pt about potential discharge this weekend vs continuation of telem monitor and holter on Sunday. Pt is more comfortable with staying over the weekend -which is also safest for pt. (2) Chest pain Comment: Likely related ro symptoms of arrythmia. Trops 0.02-0.03 stress shows small area of hypoperfusion inferior wall and EF 76% cont ASA, started statin for LDL of 100 (monitor for symptoms of myopathy in pt on colchicine) (3) Gout Comment: Continue colchicine. (4) DVT prophylaxis Comment: heparin sc Status and Disposition: obv changed to inpatient due to need for further telem monitoring. D/c planned on Sunday with Holter monitor in place
[2016-07-30] MEDS: Atorvastatin* 20 MG TAB PO SCH (21:45)
[2016-07-31] MEDS: Heparin VIAL(*) 5000 UNITS/ML VIAL (FIVE THOUSAND) SUBCUT SCH (05:55)
[2016-07-31] MEDS: Colchicine* 0.6 MG TAB PO SCH (08:53)
[2016-07-31] MEDS: Metoprolol Succinate XL TAB* 25 MG PO SCH (08:53)
[2016-07-31] MEDS: Aspirin EC Low Dose* 81 MG TAB.EC PO SCH (08:53)
[2016-07-31] MEDS: Omeprazole CAP* 20 MG PO SCH (08:53)
[2016-07-31 11:49] VITALS: BP 122/67
--- NOTE | 2016-08-01 10:22 | DS ---
DISCHARGE SUMMARY: DATE OF ADMISSION: 07/27/16 DATE OF DISCHARGE: 07/31/16 PRIMARY CARE PROVIDER: Milton Asif NP DISCHARGE DIAGNOSES: 1. Syncope, most likely due to arrhythmia, with resultant laceration of patient's scalp. 2. Chest pressure. PAST MEDICAL HISTORY: 1. Peripheral vascular disease, status post stenting to superficial femoral arteries on the left by Dr. Britt in November 2015. 2. Gastroesophageal reflux disease. 3. History of cerebrovascular accident in 2013, question embolic. 4. Gout. MEDICATION AT DISCHARGE: Include: 1. Aspirin 81 mg daily. 2. Protonix 40 mg daily. 3. Colchicine 0.6 mg daily. 4. Lipitor 20 mg daily. 5. Metoprolol succinate 12.5 mg daily. LABORATORY DATA AND STUDIES PERFORMED DURING THE HOSPITAL STAY: On 07/28/16, white blood cell count 9.9, hemoglobin 13.8, hematocrit 41, and platelets 222. Sodium 135, potassium 3.9, chloride 105, carbon dioxide 26, BUN 13, creatinine 1.1. Fasting lipid profile showed triglycerides 141, cholesterol total 155, LDL 100, HDL 27. CT angiogram of the chest obtained on 07/28/16, impression: "There is no evidence of pulmonary emboli noted. Calcified lymph nodes and calcifications of spleen consistent with granulomatous disease. No pulmonary lesions are identified." Nuclear medicine cardiac stress test obtained on 07/28/16, impression: "Small fixed hypoperfusion of the inferior wall towards the apex." The patient's EF was noted to be 76% at stress. Please also note that there was no reversibility noted. Transthoracic echocardiogram 07/27/16 showed conclusions: Left ventricular chamber size is normal. Mild concentric left ventricular hypertrophy is observed. There is normal ventricular systolic function. The LV estimated ejection fraction is 55% to 60%. Global left ventricular wall motion contractility within normal limits. The left atrium is normal in size. The right ventricle is mildly dilated. The right ventricular global systolic function is mildly reduced. Mild aortic leaflet thickening and calcification is visualized. No pulmonary hypertension is noted. Comparing to study from 2013 , RV size and function are reduced respectively." CONSULTATIONS DURING THE HOSPITAL STAY: Included Dr. Dumont and Dr. Pena from Cardiology. 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 Unfortunately, in the past several weeks, had gotten more frequent and, in fact, the day of his presentation to the ED on 07/27/16, he had loss of consciousness after he sensed palpitations coming on and then he had sustained laceration to the right scalp. The patient was observed on telemetry monitored bed for three days without any arrhythmias noted. He has occasional PVCs. His sensation of palpitations did not come back. He was seen by Cardiology by Dr. Dumont, Dr. Pena. Both cardiologists recommended long-term monitoring. Due to the patient not feeling safe going home right away, he was kept over the weekend on telemetry monitored bed. Please also note that he was already hospitalized at our facility a week prior to that for the same problem. Once again, telemetry monitored bed continuously for three days failed to show any marked arrhythmias. The patient was started on low dose of beta-derek, which he tolerated well despite occasional bradycardia. He had a CT angiogram of the chest which was negative for PE, and that was performed due to elevated D-dimer and intermittent episodes of chest pressure. Due to that, nuclear medicine cardiac stress test was also performed, which showed a small area of non- reversible ischemia. The patient's troponins were negative throughout his hospital stay and there were no further recommendations to work it up by the cardiologists, apart from placing the patient on statin and aspirin. The patient is being discharged today with Holter monitor in place. He is recommended to see Dr. Gaffney on 08/03/16 at 11:15 a.m. with plans of scheduling four weeks monitoring system. PHYSICAL EXAMINATION AT DISCHARGE: Blood pressure of 122/67, heart rate 57 and regular, respiratory rate 16, oxygen saturation 98% on room air, temperature 97.7. General: The patient is a pleasant 70-year-old male who is in no acute distress. Awake, alert, and oriented x3. HEENT: Head: Atraumatic, normocephalic. Eyes: Pupils are equal and reactive to light and accommodation. Oropharynx clear. Mucosa moist. Neck: Supple. No JVD. No bruit bilaterally. Cardiovascular: Regular rate and rhythm. No murmur. Respiratory : Clear to auscultation bilaterally. Abdomen: Soft, nontender, bowel sounds present in all 4 quadrants. Extremities: There is no edema. Pulses +2 bilaterally. No clubbing or cyanosis. On evaluation of the skin, the patient has a laceration of approximately 5 cm in the right occipital area that has no dehiscence. It is stapled. Neuro Evaluation: Speech clear. Cranial nerves II through XII grossly intact. Motor strength is 5/5 bilaterally. Please note that this is a short summary of the patient's hospital stay. Please refer to further medical records for details. TIME SPENT: Approximately 40 minutes were spent on the patient's discharge. CC: Milton Asif NP; Dr. Gaffney; Dr. Dumont; Dr. Pena* [id number]/[facility] #: [id number] MTDD
== END 2016-07-31 14:15 | disposition home or self-care (01) | DRG 310 ==
LOC: ED 10:18 → MEDTELE 13:04 → OBSVTOIN 07-29 12:43
PROVIDERS: ADMIT Internal Medicine; ATTEND Internal Medicine
DX: I49.9 Cardiac arrhythmia, unspecified (principal); R55 Syncope and collapse; I73.9 Peripheral vascular disease, unspecified; K21.9 Gastro-esophageal reflux disease without esophagitis; M10.9 Gout, unspecified; Z86.73 Personal history of transient ischemic attack (TIA), and cerebral infarction without residual deficits; Z79.82 Long term (current) use of aspirin; Z79.899 Other long term (current) drug therapy; Z82.49 Family history of ischemic heart disease and other diseases of the circulatory system; Z87.891 Personal history of nicotine dependence; D72.829 Elevated white blood cell count, unspecified
CPT/HCPCS: 36415; 70450; 71010; 71275; 72125; 78452; 80048; 80053; 80061; 81003; 81015; 82550; 82553; 83036; 83605; 83690; 83735; 83880; 84443; 84484; 85025; 85379; 85610; 85730; 86140; 87077; 87086; 93005; 93225; 93226; 93306; A9270-GY; A9502; J1644; J2405; J2785; J3475; Q9967

== ENCOUNTER 2020-01-05 15:20 | Observation (INO) ==
[2020-01-05] MEDS ORDERED: Heparin - STEMI 5,000 UNITS/ML 1 ml VIAL IV ONE (15:23)
[2020-01-05] MEDS ORDERED: VERAPAMIL 2.5 MG/ML 2 ML VIAL ** 5 mg/2 ml ONE (15:28)
[2020-01-05] MEDS ORDERED: Midazolam 5 mg/5 ml VIAL 1 mg/ml 5 ml VIAL (5 mg) ONE (15:28)
[2020-01-05] MEDS ORDERED: fentaNYL 100 mcg/2 ml 50 MCG/ML VIAL ONE (15:28)
[2020-01-05] MEDS ORDERED: Heparin 2 UNITS/ML 1000 mls 2,000 ML IV ONE (15:28)
[2020-01-05] MEDS ORDERED: Heparin 1,000 UNIT/ML 10 ml (10,000 UNITS) CATHLAB/DIALYSIS IV ONE (15:28)
[2020-01-05] MEDS ORDERED: nitroGLYCERIN DRIP 25,000 MCG/250 ML BTL ONE (15:29)
[2020-01-05] MEDS ORDERED: Lidocaine 1% VIAL 10 MG/ML VIAL ONE (15:29)
[2020-01-05] MEDS ORDERED: Iodixanol 320 (CONTRAST) 100 ML SDV ONE ×2 (15:29→16:07)
[2020-01-05 15:39] LABS: ABS Basophils 0.1 10^3/ul (0-0.2); ABS Lymphocytes 1.3 10^3/ul (1.0-4.8); ABS Monocytes 0.8 10^3/ul (0-0.8); ABS Neutrophils 9.5 10^3/ul (1.5-7.7); Eosinophil % 0.4 %; Hematocrit 42 % (42-52); Hemoglobin 14.4 g/dL (14.0-18.0); Lymphocyte % 10.8 %; Mean Corpuscular HGB Conc 34 g/dL (31-36); Mean Corpuscular Hemoglobin 32 pg (27-31); Mean Corpuscular Volume 93 fL (80-94); Mean Platelet Volume 8.2 fL (7.4-10.4); Platelet Count 254 10^3/uL (150-450); Red Blood Count 4.51 10^6 /uL (4.18-5.48); Red Cell Distribution Width 13 % (10-15); White Blood Count 11.7 10^3/uL (3.5-10.8)
[2020-01-05 15:45] LABS: Activated Partial Thrombo Time 24.9 seconds (26.0-38.0); INR 1.09 (0.82-1.09)
[2020-01-05 15:59] LABS: CKMB ng/mL 1.6 ng/mL (0.6-6.3)
[2020-01-05 16:02] LABS: Troponin I 0.04 ng/mL (<0.03)
[2020-01-05] MEDS ORDERED: Heparin DRIP 25,000 UNITS BAG 25,000 UNITS/500 ML BAG ONE (16:09)
[2020-01-05] MEDS ORDERED: Heparin DRIP 25,000 UNITS BAG 25,000 UNITS/500 ML BAG IV SCH (16:30)
[2020-01-05] MEDS ORDERED: Heparin 5000 UNITS/ML 1 mL VIAL IV SCH (17:00)
[2020-01-05 17:07] VITALS: BP 118/48
[2020-01-05 17:31] LABS: Albumin 3.6 g/dL (3.2-5.2); Anion Gap 6 mmol/L (2-11); CO2 Carbon Dioxide 26 mmol/L (22-32); Calcium 9.8 mg/dL (8.6-10.3); Chloride 104 mmol/L (101-111); Potassium 4.9 mmol/L (3.5-5.0); Sodium 136 mmol/L (135-145)
[2020-01-05 17:37] LABS: ALT 20 U/L (7-52); AST 19 U/L (13-39); Albumin/Globulin Ratio 1.1 (1-3); Alkaline Phosphatase 69 U/L (34-104); BUN/Creatinine Ratio 12.4 (8-20); Blood Urea Nitrogen 13 mg/dL (6-24); Creatine Kinase 49 U/L (10-223); EGFR African American 83.8 (>60); EGFR Non-African American 69.2 (>60); Globulin 3.2 g/dL (2-4); Glucose 116 mg/dL (70-100); LDL Cholesterol Direct 115 mg/dL; Total Protein 6.8 g/dL (6.4-8.9)
== END 2020-01-05 18:00 | disposition short-term general hospital (02) ==
LOC: ED 15:20 → CHICATH 15:34 → INTOOBSV 17:49 → ICU 17:49
PROVIDERS: ADMIT Internal Medicine Cardiovascular Disease; ATTEND Internal Medicine Cardiovascular Disease

== ENCOUNTER 2020-01-08 04:34 | Observation (INO) ==
[2020-01-08 08:24] LABS: ABS Basophils 0.1 10^3/ul (0-0.2); ABS Eosinophils 0.3 10^3/ul (0-0.6); ABS Lymphocytes 1.9 10^3/ul (1.0-4.8); ABS Neutrophils 6.7 10^3/ul (1.5-7.7); Eosinophil % 2.8 %; Hematocrit 41 % (42-52); Hemoglobin 14.6 g/dL (14.0-18.0); Mean Corpuscular HGB Conc 36 g/dL (31-36); Mean Corpuscular Hemoglobin 33 pg (27-31); Mean Corpuscular Volume 93 fL (80-94); Mean Platelet Volume 9.2 fL (7.4-10.4); Nucleated Red Blood Cells % 0.1; Platelet Count 243 10^3/uL (150-450); Red Cell Distribution Width 14 % (10-15); White Blood Count 9.8 10^3/uL (3.5-10.8)
[2020-01-08 08:26] LABS: Activated Partial Thrombo Time 27.9 seconds (26.0-38.0); INR 1.05 (0.82-1.09)
[2020-01-08 08:34] LABS: Troponin I 1.36 ng/mL (<0.03)
[2020-01-08 09:21] LABS: Chloride 105 mmol/L (101-111); Potassium 3.8 mmol/L (3.5-5.0); Sodium 135 mmol/L (135-145)
[2020-01-08 09:22] LABS: ALT 24 U/L (7-52); AST 31 U/L (13-39); Albumin 3.7 g/dL (3.2-5.2); Albumin/Globulin Ratio 1.1 (1-3); Alkaline Phosphatase 78 U/L (34-104); Anion Gap 9 mmol/L (2-11); BUN/Creatinine Ratio 10.5 (8-20); Blood Urea Nitrogen 11 mg/dL (6-24); CO2 Carbon Dioxide 21 mmol/L (22-32); EGFR African American 83.8 (>60); EGFR Non-African American 69.2 (>60); Globulin 3.3 g/dL (2-4); Glucose 116 mg/dL (70-100)
[2020-01-08 09:24] LABS: Troponin I 1.39 ng/mL (<0.03)
[2020-01-08] MEDS ORDERED: Al Hydrox/Mg Hydrox/Simet LIQ 30 ML UDC PO PRN (10:33)
[2020-01-08] MEDS ORDERED: Albuterol HFA INHALER 8 gm MDI INH PRN (11:31)
[2020-01-08 13:08] LABS: Troponin I 1.04 ng/mL (<0.03)
[2020-01-08] MEDS: Heparin 5000 UNITS/ML 1 mL VIAL SUBCUT SCH ×2 (14:51→20:45)
[2020-01-08] MEDS ORDERED: Potassium Chlor 20 meq TAB.ER PO ONE (17:15)
[2020-01-08] MEDS ORDERED: Magnesium Sulfate IV 1GM/100ML 1 GM/100 ML BAG IV ONE (17:16)
[2020-01-08 18:27] LABS: Magnesium 1.9 mg/dL (1.9-2.7)
[2020-01-09] MEDS: Heparin 5000 UNITS/ML 1 mL VIAL SUBCUT SCH ×2 (05:19→14:11)
[2020-01-09 06:11] LABS: ABS Basophils 0.1 10^3/ul (0-0.2); ABS Eosinophils 0.3 10^3/ul (0-0.6); ABS Lymphocytes 2.1 10^3/ul (1.0-4.8); ABS Neutrophils 9.1 10^3/ul (1.5-7.7); Eosinophil % 2.1 %; Hematocrit 41 % (42-52); Hemoglobin 14.1 g/dL (14.0-18.0); Lymphocyte % 16.7 %; Mean Corpuscular HGB Conc 35 g/dL (31-36); Mean Corpuscular Hemoglobin 32 pg (27-31); Mean Corpuscular Volume 93 fL (80-94); Mean Platelet Volume 8.8 fL (7.4-10.4); Platelet Count 224 10^3/uL (150-450); Red Blood Count 4.37 10^6 /uL (4.18-5.48); Red Cell Distribution Width 14 % (10-15); White Blood Count 12.6 10^3/uL (3.5-10.8)
[2020-01-09 06:28] LABS: BUN/Creatinine Ratio 10.9 (8-20); Calcium 9.4 mg/dL (8.6-10.3); EGFR African American 79.4 (>60); EGFR Non-African American 65.6 (>60); Potassium 4.2 mmol/L (3.5-5.0)
[2020-01-09] MEDS ORDERED: Aspirin EC 81 mg TAB.EC (enteric coated) PO SCH (09:00)
[2020-01-09 13:46] LABS: Urine Appearance Turbid; Urine Bilirubin Negative (Negative); Urine Blood 1+ (Negative); Urine Color Yellow; Urine Glucose Negative (Negative); Urine Ketones Negative (Negative); Urine Nitrite Positive (Negative); Urine Protein Negative (Negative); Urine Specific Gravity 1.011 (1.010-1.030); Urine Urobilinogen Negative (Negative)
[2020-01-09 13:51] LABS: Urine Bacteria Absent (Absent); Urine Red Blood Cell 3+(>10/hpf) (Absent); Urine Squamous Epithelial Cell Present (Absent); Urine White Blood Cell 3+(>20/hpf) (Absent)
[2020-01-09 15:12] VITALS: BP 111/66
== END 2020-01-09 16:32 | disposition home or self-care (01) ==
LOC: MEDTELE 06:55 → ED 06:55 → MEDTELE 11:39
PROVIDERS: ADMIT Internal Medicine; ATTEND Internal Medicine

== ENCOUNTER 2020-03-03 14:45 | Inpatient (IN) ==
[2020-03-05 12:09] VITALS: BP 98/49
== END 2020-03-05 14:43 | disposition home or self-care (01) ==
LOC: ED 14:45 → CHICATH 15:58 → ICU 17:59 → MEDTELE 03-04 13:23
PROVIDERS: ADMIT Internal Medicine; ATTEND Internal Medicine

== ENCOUNTER 2020-03-09 17:05 | Inpatient (IN) ==
[2020-03-09 17:35] LABS: ABS Basophils 0.1 10^3/ul (0-0.2); ABS Eosinophils 0.3 10^3/ul (0-0.6); ABS Lymphocytes 1.4 10^3/ul (1.0-4.8); ABS Monocytes 0.8 10^3/ul (0-0.8); ABS Neutrophils 7.5 10^3/ul (1.5-7.7); Eosinophil % 2.7 %; Hematocrit 36 % (42-52); Hemoglobin 12.6 g/dL (14.0-18.0); Lymphocyte % 13.9 %; Mean Corpuscular HGB Conc 35 g/dL (31-36); Mean Corpuscular Hemoglobin 32 pg (27-31); Mean Corpuscular Volume 92 fL (80-94); Mean Platelet Volume 8.3 fL (7.4-10.4); Nucleated Red Blood Cells % 0.1; Platelet Count 256 10^3/uL (150-450); Red Blood Count 3.95 10^6 /uL (4.18-5.48); Red Cell Distribution Width 14 % (10-15); White Blood Count 10.1 10^3/uL (3.5-10.8)
[2020-03-09 17:38] LABS: Activated Partial Thrombo Time 27.2 seconds (26.0-38.0); INR 1.08 (0.82-1.09)
[2020-03-09 17:43] LABS: Myoglobin 37.9 ng/mL (17.4-105.7)
[2020-03-09 17:44] LABS: CKMB ng/mL 1.8 ng/mL (0.6-6.3)
[2020-03-09 17:45] LABS: Troponin I 0.17 ng/mL (<0.03)
[2020-03-09 17:57] LABS: ALT 10 U/L (7-52); AST 11 U/L (13-39); Albumin/Globulin Ratio 1.2 (1-3); Alkaline Phosphatase 70 U/L (34-104); Anion Gap 8 mmol/L (2-11); BUN/Creatinine Ratio 11.8 (8-20); Blood Urea Nitrogen 9 mg/dL (6-24); CO2 Carbon Dioxide 22 mmol/L (22-32); Calcium 8.1 mg/dL (8.6-10.3); Chloride 109 mmol/L (101-111); Creatine Kinase 37 U/L (10-223); EGFR African American 121.6 (>60); EGFR Non-African American 100.5 (>60); Globulin 2.5 g/dL (2-4); Glucose 111 mg/dL (70-100); Magnesium 1.5 mg/dL (1.9-2.7); Potassium 3.4 mmol/L (3.5-5.0); Sodium 139 mmol/L (135-145); Total Protein 5.5 g/dL (6.4-8.9)
[2020-03-09] MEDS ORDERED: Ondansetron 4 mg VIAL 2 MG/ML 2 ml VIAL IV PRN (19:59)
[2020-03-09] MEDS ORDERED: Magnesium Sulfate 2 gm BAG 2 GM/50 ML BAG IVPB ONE (19:59)
[2020-03-09] MEDS ORDERED: Nitro 2% OINT (Nitroglycerin) 1 INCH/PAK TOPICAL ONE (19:59)
[2020-03-09] MEDS ORDERED: Heparin DRIP 25,000 UNITS BAG 25,000 UNITS/500 ML BAG IV SCH (20:00)
[2020-03-09] MEDS ORDERED: NS 0.9% 1000 ml BAG 1,000 ML IV SCH (20:30)
[2020-03-09] MEDS: Heparin 5000 UNITS/ML 1 mL VIAL IV SCH (20:46)
[2020-03-09] MEDS ORDERED: KCL 10 MEQ/50 ML IVPREMIX 10 MEQ/50 ML BAG IV SCH (21:00)
[2020-03-09] MEDS ORDERED: Nitro 2% OINT (Nitroglycerin) 1 INCH/PAK ONE (21:20)
[2020-03-09 21:35] LABS: Cholesterol 82 mg/dL; HDL Cholesterol 18.9 mg/dL; LDL Cholesterol 47 mg/dL; Triglycerides 83 mg/dL
[2020-03-09 21:44] LABS: Troponin I 0.49 ng/mL (<0.03)
[2020-03-09] MEDS ORDERED: Potassium Chlor 20 meq TAB.ER PO ONE (21:50)
[2020-03-10 01:37] LABS: Troponin I 1.12 ng/mL (<0.03)
[2020-03-10] MEDS: Heparin 5000 UNITS/ML 1 mL VIAL IV SCH (03:36)
[2020-03-10] MEDS ORDERED: Nicotine GUM 2MG FRUIT FLAVOR PO PRN (04:05)
[2020-03-10 04:07] LABS: ABS Basophils 0.1 10^3/ul (0-0.2); ABS Eosinophils 0.6 10^3/ul (0-0.6); ABS Neutrophils 8.4 10^3/ul (1.5-7.7); Eosinophil % 4.3 %; Hematocrit 33 % (42-52); Hemoglobin 11.7 g/dL (14.0-18.0); Lymphocyte % 22.7 %; Mean Corpuscular HGB Conc 35 g/dL (31-36); Mean Corpuscular Hemoglobin 33 pg (27-31); Mean Corpuscular Volume 93 fL (80-94); Mean Platelet Volume 8.3 fL (7.4-10.4); Platelet Count 245 10^3/uL (150-450); Red Blood Count 3.56 10^6 /uL (4.18-5.48); Red Cell Distribution Width 14 % (10-15)
[2020-03-10 04:28] LABS: BUN/Creatinine Ratio 12.3 (8-20); Calcium 9.4 mg/dL (8.6-10.3); EGFR Non-African American 93.4 (>60); Magnesium 2.2 mg/dL (1.9-2.7); Potassium 4.1 mmol/L (3.5-5.0)
[2020-03-10 04:34] LABS: Troponin I 1.35 ng/mL (<0.03)
[2020-03-10] MEDS: Aspirin EC 81 mg TAB.EC (enteric coated) PO SCH (09:11)
[2020-03-10] MEDS: Vitamin THERAPEUTIC TAB PO SCH (09:11)
[2020-03-10] MEDS: Isosorbide Mononit ER 30mg TAB PO SCH (09:11)
[2020-03-10] MEDS: Nicotine PATCH 14 MG/24 HR PATCH TRANSDERM SCH (09:14)
[2020-03-10] MEDS ORDERED: fentaNYL 100 mcg/2 ml 50 MCG/ML VIAL ONE (09:23)
[2020-03-10] MEDS ORDERED: Midazolam 5 mg/5 ml VIAL 1 mg/ml 5 ml VIAL (5 mg) ONE (09:23)
[2020-03-10] MEDS ORDERED: Heparin 1,000 UNIT/ML 10 ml (10,000 UNITS) CATHLAB/DIALYSIS ONE (09:23)
[2020-03-10] MEDS ORDERED: Iohexol 350 (CONTRAST) 200 ML MDV IV ONE ×2 (09:24→09:43)
[2020-03-10] MEDS ORDERED: Lidocaine 1% VIAL 10 MG/ML VIAL ONE (09:24)
[2020-03-10] MEDS ORDERED: VERAPAMIL 2.5 MG/ML 2 ML VIAL ** 5 mg/2 ml ONE (09:24)
[2020-03-10] MEDS ORDERED: nitroGLYCERIN DRIP 25,000 MCG/250 ML BTL ONE (09:24)
[2020-03-10] MEDS ORDERED: Heparin 2 UNITS/ML 1000 mls 2,000 ML IV ONE (09:24)
[2020-03-10] MEDS ORDERED: HYDROmorphone 1 MG/1 ML SYRINGE ONE ×2 (09:26→11:55)
[2020-03-10] MEDS ORDERED: diPHENhydraMINE IV 50 MG/ML 1 ml VIAL (BENADRYL) ONE (09:34)
[2020-03-10] MEDS ORDERED: NS 0.9% 1000 ml BAG 1,000 ML IV SCH ×2 (10:30→13:15)
[2020-03-10] MEDS ORDERED: Bivalirudin 250 MG VIAL ONE ×2 (10:43→11:25)
[2020-03-10] MEDS ORDERED: Nitro 2% OINT (Nitroglycerin) 1 INCH/PAK TOPICAL SCH (12:00)
[2020-03-10] MEDS ORDERED: Phenol 1.4% Throat Spray 177 ml BTL MT PRN (16:24)
[2020-03-10] MEDS ORDERED: Nitro Patch/OINT Remove PATCH TOPICAL SCH (18:00)
[2020-03-11] MEDS ORDERED: Morphine 2 MG/ML SYRINGE IV ONE (02:28)
[2020-03-11] MEDS ORDERED: Morphine 2 MG/ML SYRINGE ONE (02:56)
[2020-03-11 06:00] LABS: ABS Basophils 0.1 10^3/ul (0-0.2); ABS Eosinophils 0.5 10^3/ul (0-0.6); ABS Lymphocytes 1.8 10^3/ul (1.0-4.8); ABS Monocytes 0.8 10^3/ul (0-0.8); ABS Neutrophils 10.7 10^3/ul (1.5-7.7); Eosinophil % 3.6 %; Hematocrit 35 % (42-52); Hemoglobin 12.4 g/dL (14.0-18.0); Lymphocyte % 13.1 %; Mean Corpuscular HGB Conc 35 g/dL (31-36); Mean Corpuscular Hemoglobin 33 pg (27-31); Mean Corpuscular Volume 92 fL (80-94); Mean Platelet Volume 8.1 fL (7.4-10.4); Platelet Count 263 10^3/uL (150-450); Red Blood Count 3.81 10^6 /uL (4.18-5.48); Red Cell Distribution Width 14 % (10-15); White Blood Count 13.9 10^3/uL (3.5-10.8)
[2020-03-11 06:16] LABS: Blood Urea Nitrogen 7 mg/dL (6-24); EGFR African American 116.3 (>60); EGFR Non-African American 96.1 (>60)
[2020-03-11] MEDS: Nicotine PATCH 14 MG/24 HR PATCH TRANSDERM SCH (08:46)
[2020-03-11] MEDS: Aspirin EC 81 mg TAB.EC (enteric coated) PO SCH (08:48)
[2020-03-11] MEDS: Isosorbide Mononit ER 30mg TAB PO SCH (08:48)
[2020-03-11] MEDS: Vitamin THERAPEUTIC TAB PO SCH (08:48)
[2020-03-11 09:21] LABS: ALT 14 U/L (7-52); AST 27 U/L (13-39); Albumin 3.3 g/dL (3.2-5.2); Albumin/Globulin Ratio 1.1 (1-3); Alkaline Phosphatase 98 U/L (34-104); Anion Gap 6 mmol/L (2-11); CO2 Carbon Dioxide 25 mmol/L (22-32); Calcium 9.5 mg/dL (8.6-10.3); Chloride 104 mmol/L (101-111); Glucose 104 mg/dL (70-100); Magnesium 1.9 mg/dL (1.9-2.7); Potassium 4.6 mmol/L (3.5-5.0); Sodium 135 mmol/L (135-145); Total Protein 6.3 g/dL (6.4-8.9)
[2020-03-11 09:34] LABS: BUN/Creatinine Ratio 8.9 (8-20)
[2020-03-11 13:48] LABS: Troponin I 1.79 ng/mL (<0.03)
[2020-03-11 15:13] VITALS: BP 133/71
[2020-03-11] MEDS ORDERED: Nicotine PATCH 21 MG/24 HR PATCH TRANSDERM SCH (17:00)
== END 2020-03-11 16:15 | disposition home or self-care (01) | DRG 247 ==
LOC: ED 17:05 → MEDTELE 19:52 → ICU 03-10 13:50
PROVIDERS: ADMIT Nurse Practitioner Family; ATTEND Internal Medicine

== ENCOUNTER 2020-03-16 01:17 | Inpatient (IN) ==
[2020-03-16] MEDS ORDERED: Heparin - STEMI 5,000 UNITS/ML 1 ml VIAL IV ONE ×2 (01:22→01:29)
[2020-03-16] MEDS ORDERED: fentaNYL 100 mcg/2 ml 50 MCG/ML VIAL IV SLOW PU ONE (01:29)
[2020-03-16] MEDS ORDERED: Heparin DRIP 25,000 UNITS BAG 25,000 UNITS/500 ML BAG IV SCH ×2 (01:30)
[2020-03-16] MEDS ORDERED: fentaNYL 100 mcg/2 ml 50 MCG/ML VIAL ONE ×2 (01:30→01:52)
[2020-03-16] MEDS ORDERED: Lactated Ringers 1000 ml BAG 1,000 ML IV ONE (01:31)
[2020-03-16 01:37] LABS: Hematocrit 42 % (42-52); Hemoglobin 14.3 g/dL (14.0-18.0); Mean Corpuscular HGB Conc 34 g/dL (31-36); Mean Corpuscular Hemoglobin 32 pg (27-31); Mean Corpuscular Volume 93 fL (80-94); Mean Platelet Volume 7.8 fL (7.4-10.4); Platelet Count 384 10^3/uL (150-450); Red Blood Count 4.48 10^6 /uL (4.18-5.48); Red Cell Distribution Width 15 % (10-15); White Blood Count 23.6 10^3/uL (3.5-10.8)
[2020-03-16] MEDS ORDERED: Heparin DRIP 25,000 UNITS BAG 25,000 UNITS/500 ML BAG ONE (01:39)
[2020-03-16 01:52] LABS: Blood Urea Nitrogen 18 mg/dL (6-24); EGFR African American 61.6 (>60); EGFR Non-African American 50.9 (>60)
[2020-03-16] MEDS ORDERED: Heparin 2 UNITS/ML 1000 mls 3,000 ML IV ONE (01:52)
[2020-03-16] MEDS ORDERED: Midazolam 5 mg/5 ml VIAL 1 mg/ml 5 ml VIAL (5 mg) ONE (01:52)
[2020-03-16] MEDS ORDERED: Iohexol 350 (CONTRAST) 200 ML MDV IV ONE ×3 (01:53→02:32)
[2020-03-16] MEDS ORDERED: nitroGLYCERIN DRIP 25,000 MCG/250 ML BTL ONE ×2 (01:53→02:51)
[2020-03-16] MEDS ORDERED: Lidocaine 1% VIAL 10 MG/ML VIAL ONE (01:53)
[2020-03-16 01:57] LABS: Troponin I 0.33 ng/mL (<0.03)
[2020-03-16] MEDS ORDERED: Heparin 1,000 UNIT/ML 10 ml (10,000 UNITS) CATHLAB/DIALYSIS ONE (01:57)
[2020-03-16] MEDS ORDERED: Heparin 5000 UNITS/ML 1 mL VIAL IV SCH (02:00)
[2020-03-16] MEDS ORDERED: Morphine 4 MG/ML VIAL (1 ml) ONE (02:26)
[2020-03-16] MEDS ORDERED: Eptifibatide IV (Load dose) 2 MG/ML 10 ml VIAL ONE (02:40)
[2020-03-16] MEDS ORDERED: Bivalirudin 250 MG VIAL ONE (02:47)
[2020-03-16 03:32] LABS: ABS Basophils 0.2 10^3/ul (0-0.2); ABS Eosinophils 0.3 10^3/ul (0-0.6); ABS Lymphocytes 1.7 10^3/ul (1.0-4.8); ABS Monocytes 1.3 10^3/ul (0-0.8); ABS Neutrophils 20.1 10^3/ul (1.5-7.7); Eosinophil % 1.3 %; Lymphocyte % 7.3 %
[2020-03-16] MEDS ORDERED: nitroGLYCERIN DRIP 25,000 MCG/250 ML BTL IV SCH (04:00)
[2020-03-16 04:36] LABS: Anion Gap 12 mmol/L (2-11); CO2 Carbon Dioxide 25 mmol/L (22-32); Calcium 9.7 mg/dL (8.6-10.3); Chloride 97 mmol/L (101-111); Glucose 186 mg/dL (70-100); Potassium 4.9 mmol/L (3.5-5.0); Sodium 134 mmol/L (135-145)
[2020-03-16 05:14] LABS: BUN/Creatinine Ratio 13.14 (8-20)
[2020-03-16 06:20] LABS: ABS Basophils 0.1 10^3/ul (0-0.2); ABS Lymphocytes 1.3 10^3/ul (1.0-4.8); ABS Monocytes 0.8 10^3/ul (0-0.8); ABS Neutrophils 18.9 10^3/ul (1.5-7.7); Eosinophil % 0.2 %; Hematocrit 37 % (42-52); Hemoglobin 12.7 g/dL (14.0-18.0); Mean Corpuscular HGB Conc 34 g/dL (31-36); Mean Corpuscular Hemoglobin 32 pg (27-31); Mean Corpuscular Volume 93 fL (80-94); Mean Platelet Volume 7.7 fL (7.4-10.4); Platelet Count 292 10^3/uL (150-450); Red Cell Distribution Width 15 % (10-15); White Blood Count 21.1 10^3/uL (3.5-10.8)
[2020-03-16 06:42] LABS: ALT 22 U/L (7-52); AST 57 U/L (13-39); Albumin 3.4 g/dL (3.2-5.2); Albumin/Globulin Ratio 1.1 (1-3); Alkaline Phosphatase 89 U/L (34-104); Anion Gap 7 mmol/L (2-11); BUN/Creatinine Ratio 16.7 (8-20); Blood Urea Nitrogen 17 mg/dL (6-24); CO2 Carbon Dioxide 25 mmol/L (22-32); Calcium 9.2 mg/dL (8.6-10.3); Chloride 99 mmol/L (101-111); EGFR African American 86.6 (>60); EGFR Non-African American 71.6 (>60); Globulin 3.1 g/dL (2-4); Glucose 139 mg/dL (70-100); Potassium 4.7 mmol/L (3.5-5.0); Sodium 131 mmol/L (135-145); Total Protein 6.5 g/dL (6.4-8.9)
[2020-03-16 06:56] LABS: Troponin I 13.84 ng/mL (<0.03)
[2020-03-16] MEDS: Isosorbide Mononit ER 30mg TAB PO SCH (08:11)
[2020-03-16 08:14] LABS: Magnesium 1.9 mg/dL (1.9-2.7)
[2020-03-16] MEDS ORDERED: Perflutren Lipid Microsphere 3 ML VIAL ONE (09:26)
[2020-03-16 13:41] LABS: Troponin I 19.39 ng/mL (<0.03)
[2020-03-17 06:20] LABS: ABS Basophils 0.1 10^3/ul (0-0.2); ABS Eosinophils 0.5 10^3/ul (0-0.6); ABS Lymphocytes 2.5 10^3/ul (1.0-4.8); ABS Monocytes 0.9 10^3/ul (0-0.8); ABS Neutrophils 8.5 10^3/ul (1.5-7.7); Eosinophil % 4.3 %; Hematocrit 36 % (42-52); Hemoglobin 12.6 g/dL (14.0-18.0); Mean Corpuscular HGB Conc 35 g/dL (31-36); Mean Corpuscular Hemoglobin 32 pg (27-31); Mean Corpuscular Volume 92 fL (80-94); Mean Platelet Volume 8.4 fL (7.4-10.4); Platelet Count 273 10^3/uL (150-450); Red Blood Count 3.87 10^6 /uL (4.18-5.48); Red Cell Distribution Width 14 % (10-15); White Blood Count 12.4 10^3/uL (3.5-10.8)
[2020-03-17 06:54] LABS: Albumin 3.4 g/dL (3.2-5.2); Albumin/Globulin Ratio 1.2 (1-3); Calcium 9.1 mg/dL (8.6-10.3); EGFR African American 88.6 (>60); EGFR Non-African American 73.2 (>60); Globulin 2.9 g/dL (2-4); Potassium 4.3 mmol/L (3.5-5.0); Total Bilirubin 0.7 mg/dL (0.2-1.0); Total Protein 6.3 g/dL (6.4-8.9)
[2020-03-17] MEDS: Isosorbide Mononit ER 30mg TAB PO SCH (09:24)
[2020-03-17 12:02] VITALS: BP 110/60
== END 2020-03-17 15:10 | disposition home or self-care (01) | DRG 250 ==
LOC: ED 01:17 → CHICATH 01:58 → ICU 03:25 → MEDTELE 16:00
PROVIDERS: ADMIT Internal Medicine Cardiovascular Disease; ATTEND Internal Medicine Cardiovascular Disease

== ENCOUNTER 2022-07-11 20:46 | Observation (INO) ==
[2022-07-11 21:07] LABS: ABS Basophils 0.1 10^3/ul (0-0.2); ABS Lymphocytes 1.3 10^3/ul (1.0-4.8); ABS Neutrophils 14.2 10^3/ul (1.5-7.7); Eosinophil % 0.1 %; Hematocrit 43 % (42-52); Hemoglobin 14.4 g/dL (14.0-18.0); Lymphocyte % 7.7 %; Mean Corpuscular HGB Conc 33 g/dL (31-36); Mean Corpuscular Hemoglobin 31 pg (27-31); Mean Corpuscular Volume 94 fL (80-94); Mean Platelet Volume 8.7 fL (7.4-10.4); Platelet Count 190 10^3/uL (150-450); Red Blood Count 4.59 10^6 /uL (4.18-5.48); Red Cell Distribution Width 15 % (10-15); White Blood Count 16.6 10^3/uL (3.5-10.8)
[2022-07-11] MEDS ORDERED: Nitro 2% OINT (Nitroglycerin) 1 INCH/PAK TOPICAL ONE (21:27)
[2022-07-11 21:42] LABS: Albumin 3.7 g/dL (3.2-5.2); Albumin/Globulin Ratio 1.3 (1-3); Calcium 9.7 mg/dL (8.6-10.3); Globulin 2.9 g/dL (2-4); Potassium 3.7 mmol/L (3.5-5.0); Total Bilirubin 0.5 mg/dL (0.2-1.0); Total Protein 6.6 g/dL (6.4-8.9); eGFR CKD-EPI 87.9 (>60)
[2022-07-11] MEDS ORDERED: Heparin DRIP 25,000 UNITS BAG 25,000 UNITS/500 ML BAG IV SCH (22:00)
[2022-07-11 22:11] LABS: ABS Basophils 0.1 10^3/ul (0-0.2); ABS Lymphocytes 1.2 10^3/ul (1.0-4.8); ABS Monocytes 1.1 10^3/ul (0-0.8); Eosinophil % 0.1 %; Hematocrit 38 % (42-52); Hemoglobin 12.7 g/dL (14.0-18.0); Lymphocyte % 7.8 %; Mean Corpuscular HGB Conc 33 g/dL (31-36); Mean Corpuscular Hemoglobin 32 pg (27-31); Mean Corpuscular Volume 95 fL (80-94); Mean Platelet Volume 8.5 fL (7.4-10.4); Platelet Count 163 10^3/uL (150-450); Red Cell Distribution Width 15 % (10-15); White Blood Count 15.3 10^3/uL (3.5-10.8)
[2022-07-11 22:27] LABS: High Sensitivity Troponin 1 Hr 96 pg/mL (<20)
[2022-07-11 22:43] LABS: eGFR CKD-EPI 87.9 (>60)
[2022-07-11] MEDS: Heparin 5000 UNITS/ML 1 mL VIAL IV SCH (23:05)
[2022-07-12] MEDS ORDERED: Midazolam 5 mg/5 ml VIAL 1 mg/ml 5 ml VIAL (5 mg) ONE (07:11)
[2022-07-12] MEDS ORDERED: fentaNYL 100 mcg/2 ml 50 MCG/ML VIAL ONE ×3 (07:11→08:15)
[2022-07-12] MEDS ORDERED: Propofol 10 MG/ML 20 ML BTL ONE (07:11)
[2022-07-12] MEDS ORDERED: Glycopyrrolate IV 0.2 MG/ML 1 ML VIAL ONE ×2 (07:12→11:54)
[2022-07-12] MEDS ORDERED: Ketamine HCL 50 mg/ml 10 ml VIAL (500 MG) ONE (07:13)
[2022-07-12] MEDS ORDERED: Rocuronium 50 mg VIAL 10 mg/ml 5 ml VIAL (50 mg) ONE (07:56)
[2022-07-12 08:38] LABS: Urine Appearance Clear; Urine Bilirubin Negative (Negative); Urine Blood Negative (Negative); Urine Color Yellow; Urine Glucose Negative (Negative); Urine Ketones Negative (Negative); Urine Nitrite Negative (Negative); Urine Protein Negative (Negative); Urine Specific Gravity 1.014 (1.002-1.030); Urine Urobilinogen Negative (Negative)
[2022-07-12 08:38] LABS: ABS Basophils 0.1 10^3/ul (0-0.2); ABS Eosinophils 0.2 10^3/ul (0-0.6); ABS Lymphocytes 3.3 10^3/ul (1.0-4.8); ABS Monocytes 1.2 10^3/ul (0-0.8); ABS Neutrophils 10.7 10^3/ul (1.5-7.7); Eosinophil % 1.5 %; Hematocrit 39 % (42-52); Hemoglobin 12.9 g/dL (14.0-18.0); Lymphocyte % 21.4 %; Mean Corpuscular HGB Conc 33 g/dL (31-36); Mean Corpuscular Hemoglobin 32 pg (27-31); Mean Corpuscular Volume 96 fL (80-94); Platelet Count 168 10^3/uL (150-450); Red Blood Count 4.09 10^6 /uL (4.18-5.48); Red Cell Distribution Width 16 % (10-15); White Blood Count 15.6 10^3/uL (3.5-10.8)
[2022-07-12 09:17] LABS: Calcium 8.9 mg/dL (8.6-10.3); Potassium 3.7 mmol/L (3.5-5.0); eGFR CKD-EPI 89.1 (>60)
[2022-07-12] MEDS: Heparin 5000 UNITS/ML 1 mL VIAL IV SCH (12:39)
[2022-07-12 16:03] VITALS: BP 161/82
== END 2022-07-12 16:03 | disposition home or self-care (01) ==
LOC: ED 20:46 → EDHOLD 20:46 → SUATTDRO 22:52 → EDHOLD 07-12 16:02
PROVIDERS: ADMIT Hospitalist; ATTEND Internal Medicine

== ENCOUNTER 2023-10-01 04:19 | Inpatient (IN) ==
[2023-10-01] MEDS ORDERED: nitroGLYCERIN DRIP 25,000 MCG/250 ML BTL ONE ×2 (04:33→04:59)
[2023-10-01] MEDS: Heparin - STEMI 5,000 UNITS/ML 1 ml VIAL IV ONE (04:38)
[2023-10-01] MEDS: fentaNYL 100 mcg/2 ml 50 MCG/ML VIAL IV SLOW PU ONE ×2 (04:40→09:01)
[2023-10-01] MEDS: nitroGLYCERIN DRIP 25,000 MCG/250 ML BTL IV SCH (04:41)
[2023-10-01 04:48] LABS: ABS Eosinophils 0.4 10^3/uL (0.0-0.5); ABS Lymphocytes 2.7 10^3/uL (1.0-4.8); ABS Neutrophils 7.3 10^3/uL (1.5-7.6); ABS Nucleated RBC 0.01 10^3/ul; Eosinophil % 3.4 %; Hematocrit 42.2 % (38-53); Hemoglobin 14.5 g/dL (13.2-16.3); Lymphocyte % 23.6 %; Mean Corpuscular Hemoglobin 32.4 pg (27-33); Mean Corpuscular Hgb Conc 34.4 g/dL (31-36); Mean Corpuscular Volume 94.2 fL (80-97); Mean Platelet Volume 9.2 fL (7.5-11.2); Nucleated Red Blood Cells % 0.1 %/100WBC (0.0-0.8); Platelet Count 201 10^3/uL (150-450); Red Blood Count 4.48 10^6/uL (4.06-5.63); Red Cell Distribution Width 14.2 % (12-17); White Blood Count 11.5 10^3/uL (3.6-10.2)
[2023-10-01] MEDS ORDERED: VERAPAMIL 2.5 MG/ML 2 ML VIAL ** 5 mg/2 ml ONE (04:59)
[2023-10-01] MEDS ORDERED: Midazolam 5 mg/5 ml VIAL 1 mg/ml 5 ml VIAL (5 mg) ONE (04:59)
[2023-10-01] MEDS ORDERED: Iohexol 350 (CONTRAST) 200 ML MDV IV ONE (04:59)
[2023-10-01] MEDS ORDERED: Heparin 2 UNITS/ML 1000 mls 3,000 ML IV ONE (04:59)
[2023-10-01] MEDS ORDERED: Heparin 1,000 UNIT/ML 10 ml (10,000 UNITS) CATHLAB/DIALYSIS ONE (04:59)
[2023-10-01] MEDS ORDERED: fentaNYL 100 mcg/2 ml 50 MCG/ML VIAL ONE (04:59)
[2023-10-01] MEDS ORDERED: Lidocaine 1% MPF 5 ML VIAL ONE ×2 (05:00→05:35)
[2023-10-01 05:03] LABS: Activated Partial Thrombo Time 28.5 seconds (26.0-38.0); INR 0.96 (0.83-1.13)
[2023-10-01 05:19] LABS: Albumin 3.7 g/dL (3.2-5.2); Albumin/Globulin Ratio 1.2 (1-3); Calcium 9.4 mg/dL (8.6-10.3); Creatinine, Serum 0.96 mg/dL (0.67-1.17); Potassium 3.6 mmol/L (3.5-5.0); Total Bilirubin 0.6 mg/dL (0.2-1.0); Total Protein 6.7 g/dL (6.4-8.9); eGFR CKD-EPI 81.9 (>60)
[2023-10-01 05:23] LABS: Magnesium 1.8 mg/dL (1.9-2.7)
[2023-10-01] MEDS ORDERED: Atropine 0.1 MG/ML 10 ml SYR (1 mg) ONE (05:24)
[2023-10-01] MEDS ORDERED: Bivalirudin 250 MG VIAL ONE ×2 (05:27→06:28)
[2023-10-01] MEDS ORDERED: Norepinephrine 4 MG/250mL D5W 4,000 MCG/250 ML BAG IV ONE (05:55)
[2023-10-01] MEDS ORDERED: Magnesium Sulfate 2 gm BAG 2 GM/50 ML BAG ONE (06:29)
[2023-10-01] MEDS: NS 0.9% 1000 ml BAG 1,000 ML IV SCH (09:06)
[2023-10-01 11:16] LABS: ALT 11 U/L (7-52); Albumin 3.7 g/dL (3.2-5.2); Albumin/Globulin Ratio 1.3 (1-3); Alkaline Phosphatase 88 U/L (35-149); Anion Gap 10 mmol/L (2-16); Blood Urea Nitrogen 15 mg/dL (6-24); CO2 Carbon Dioxide 26 mmol/L (22-32); Calcium 9.3 mg/dL (8.6-10.3); Chloride 100 mmol/L (101-111); Creatinine, Serum 0.87 mg/dL (0.67-1.17); Globulin 2.8 g/dL (2-4); Glucose 122 mg/dL (70-100); Sodium 136 mmol/L (135-145); Total Bilirubin 0.8 mg/dL (0.2-1.0); Total Protein 6.5 g/dL (6.4-8.9); eGFR CKD-EPI 89.4 (>60)
[2023-10-01 13:32] LABS: HDL Cholesterol 32.8 mg/dL
[2023-10-01] MEDS: Lidocaine 2% JELLY 6 ML Topical TOPICAL ONE ×2 (14:20→16:09)
[2023-10-01 15:04] LABS: Magnesium 1.9 mg/dL (1.9-2.7); Potassium Redraw 4.3 mmol/L (3.5-5.0)
[2023-10-01] MEDS: Iodixanol (CONTRAST) 320 MG/ML 100 ML SDV IV ONE (16:09)
[2023-10-01 16:31] LABS: ABS Basophils 0.1 10^3/uL (0.0-0.1); ABS Eosinophils 0.1 10^3/uL (0.0-0.5); ABS Monocytes 1.3 10^3/uL (0.0-1.1); ABS Neutrophils 12.7 10^3/uL (1.5-7.6); ABS Nucleated RBC 0.01 10^3/ul; Eosinophil % 0.5 %; Hematocrit 38.2 % (38-53); Hemoglobin 12.8 g/dL (13.2-16.3); Lymphocyte % 12.3 %; Mean Corpuscular Hemoglobin 31.8 pg (27-33); Mean Corpuscular Hgb Conc 33.4 g/dL (31-36); Mean Corpuscular Volume 95.2 fL (80-97); Mean Platelet Volume 9.9 fL (7.5-11.2); Platelet Count 205 10^3/uL (150-450); Red Blood Count 4.01 10^6/uL (4.06-5.63); Red Cell Distribution Width 14.1 % (12-17); White Blood Count 16.1 10^3/uL (3.6-10.2)
[2023-10-01 18:20] LABS: Urine Appearance Clear; Urine Bilirubin Negative (Negative); Urine Blood Negative (Negative); Urine Color Yellow; Urine Glucose Negative (Negative); Urine Ketones Negative (Negative); Urine Nitrite Negative (Negative); Urine Protein Negative (Negative); Urine Specific Gravity 1.034 (1.002-1.030); Urine Urobilinogen Negative (Negative); Urine pH 6.5 (5.0-8.0)
[2023-10-01] MEDS: Morphine 2 MG/ML SYRINGE IV PRN (23:23)
[2023-10-02 04:47] LABS: Hematocrit 34.4 % (38-53); Hemoglobin 11.6 g/dL (13.2-16.3); Mean Corpuscular Hemoglobin 32.1 pg (27-33); Mean Corpuscular Hgb Conc 33.9 g/dL (31-36); Mean Corpuscular Volume 94.7 fL (80-97); Mean Platelet Volume 9.3 fL (7.5-11.2); Platelet Count 186 10^3/uL (150-450); Red Blood Count 3.63 10^6/uL (4.06-5.63); Red Cell Distribution Width 14.3 % (12-17); White Blood Count 15.7 10^3/uL (3.6-10.2)
[2023-10-02 05:16] LABS: ABS Basophils 0.1 10^3/uL (0.0-0.1); ABS Eosinophils 0.2 10^3/uL (0.0-0.5); ABS Lymphocytes 1.9 10^3/uL (1.0-4.8); ABS Monocytes 1.6 10^3/uL (0.0-1.1); ABS Neutrophils 11.9 10^3/uL (1.5-7.6); Eosinophil % 1.4 %; Lymphocyte % 11.8 %
[2023-10-02 05:28] LABS: Calcium 9.2 mg/dL (8.6-10.3); Creatinine, Serum 0.85 mg/dL (0.67-1.17); Magnesium 1.9 mg/dL (1.9-2.7); Potassium 3.8 mmol/L (3.5-5.0); eGFR CKD-EPI 90.1 (>60)
[2023-10-02 17:20] LABS: ABS Basophils 0.1 10^3/uL (0.0-0.1); ABS Eosinophils 0.2 10^3/uL (0.0-0.5); ABS Lymphocytes 1.1 10^3/uL (1.0-4.8); ABS Monocytes 1.3 10^3/uL (0.0-1.1); ABS Neutrophils 11.4 10^3/uL (1.5-7.6); ABS Nucleated RBC 0.01 10^3/ul; Eosinophil % 1.5 %; Hematocrit 33.7 % (38-53); Hemoglobin 11.4 g/dL (13.2-16.3); Mean Corpuscular Hemoglobin 31.9 pg (27-33); Mean Corpuscular Volume 93.8 fL (80-97); Mean Platelet Volume 9.3 fL (7.5-11.2); Nucleated Red Blood Cells % 0.1 %/100WBC (0.0-0.8); Platelet Count 175 10^3/uL (150-450); Red Blood Count 3.59 10^6/uL (4.06-5.63); Red Cell Distribution Width 14.3 % (12-17); White Blood Count 14.2 10^3/uL (3.6-10.2)
[2023-10-02 18:21] LABS: Hematocrit 25.6 % (38-53); Hemoglobin 8.7 g/dL (13.2-16.3)
[2023-10-02 19:02] LABS: Hematocrit 33.7 % (38-53); Hemoglobin 11.6 g/dL (13.2-16.3)
[2023-10-03 06:07] LABS: ABS Basophils 0.1 10^3/uL (0.0-0.1); ABS Eosinophils 0.3 10^3/uL (0.0-0.5); ABS Lymphocytes 1.5 10^3/uL (1.0-4.8); ABS Monocytes 1.2 10^3/uL (0.0-1.1); ABS Neutrophils 9.4 10^3/uL (1.5-7.6); Eosinophil % 2.4 %; Hematocrit 35.1 % (38-53); Hemoglobin 11.9 g/dL (13.2-16.3); Lymphocyte % 12.4 %; Mean Corpuscular Hemoglobin 32.1 pg (27-33); Mean Corpuscular Hgb Conc 33.8 g/dL (31-36); Mean Platelet Volume 9.8 fL (7.5-11.2); Platelet Count 176 10^3/uL (150-450); Red Cell Distribution Width 14.1 % (12-17); White Blood Count 12.5 10^3/uL (3.6-10.2)
[2023-10-03 07:00] LABS: Albumin 3.4 g/dL (3.2-5.2); Albumin/Globulin Ratio 1.4 (1-3); Creatinine, Serum 0.86 mg/dL (0.67-1.17); Globulin 2.5 g/dL (2-4); Magnesium 1.7 mg/dL (1.9-2.7); Phosphorus 2.8 mg/dL (2.5-5.0); Total Protein 5.9 g/dL (6.4-8.9); eGFR CKD-EPI 89.7 (>60)
[2023-10-03] MEDS: Magnesium Sulfate 2 gm BAG 2 GM/50 ML BAG IVPB ONE (09:07)
[2023-10-03 09:36] LABS: Hemoglobin 11.4 g/dL (13.2-16.3); Mean Corpuscular Hemoglobin 32.6 pg (27-33); Mean Corpuscular Hgb Conc 34.4 g/dL (31-36); Mean Corpuscular Volume 94.7 fL (80-97); Mean Platelet Volume 9.8 fL (7.5-11.2); Platelet Count 177 10^3/uL (150-450); Red Blood Count 3.48 10^6/uL (4.06-5.63); White Blood Count 11.8 10^3/uL (3.6-10.2)
[2023-10-04 07:02] LABS: ABS Basophils 0.1 10^3/uL (0.0-0.1); ABS Eosinophils 0.5 10^3/uL (0.0-0.5); ABS Lymphocytes 1.7 10^3/uL (1.0-4.8); ABS Neutrophils 7.9 10^3/uL (1.5-7.6); Eosinophil % 4.5 %; Hematocrit 32.3 % (38-53); Lymphocyte % 15.1 %; Mean Corpuscular Hemoglobin 32.4 pg (27-33); Mean Corpuscular Hgb Conc 34.2 g/dL (31-36); Mean Corpuscular Volume 94.9 fL (80-97); Mean Platelet Volume 9.6 fL (7.5-11.2); Platelet Count 175 10^3/uL (150-450); Red Cell Distribution Width 14.1 % (12-17); White Blood Count 11.2 10^3/uL (3.6-10.2)
[2023-10-04 07:18] LABS: Albumin 3.3 g/dL (3.2-5.2); Albumin/Globulin Ratio 1.3 (1-3); Creatinine, Serum 1.01 mg/dL (0.67-1.17); Globulin 2.6 g/dL (2-4); Magnesium 1.9 mg/dL (1.9-2.7); Phosphorus 3.1 mg/dL (2.5-5.0); Potassium 4.1 mmol/L (3.5-5.0); Total Protein 5.9 g/dL (6.4-8.9); eGFR CKD-EPI 77.1 (>60)
[2023-10-04] MEDS: Magnesium Sulfate 2 gm BAG 2 GM/50 ML BAG IVPB ONE (10:00)
[2023-10-05 07:16] LABS: Hematocrit 35.5 % (38-53); Hemoglobin 12.1 g/dL (13.2-16.3); Mean Corpuscular Hemoglobin 32.4 pg (27-33); Mean Corpuscular Volume 95.3 fL (80-97); Mean Platelet Volume 9.9 fL (7.5-11.2); Platelet Count 211 10^3/uL (150-450); Red Blood Count 3.73 10^6/uL (4.06-5.63); Red Cell Distribution Width 13.9 % (12-17); White Blood Count 11.2 10^3/uL (3.6-10.2)
[2023-10-05 07:58] LABS: Calcium 9.1 mg/dL (8.6-10.3); Creatinine, Serum 0.96 mg/dL (0.67-1.17); Magnesium 1.9 mg/dL (1.9-2.7); eGFR CKD-EPI 81.9 (>60)
[2023-10-05 14:38] VITALS: BP 143/76
== END 2023-10-05 16:50 | disposition home or self-care (01) | DRG 321 ==
LOC: ED 04:19 → CHICATH 05:11 → ICU 05:26 → SUATTDRO 07:14 → MEDTELE 10-04 01:32
PROVIDERS: ATTEND Student in an Organized Health Care Education/Training Program

== ENCOUNTER 2024-01-22 14:26 | Inpatient (IN) ==
[2024-01-22] MEDS ORDERED: Rocuronium 50 mg VIAL 10 mg/ml 5 ml VIAL (50 mg) ONE ×2 (14:31→14:45)
[2024-01-22] MEDS ORDERED: Succinylcholine 200 mg VIAL 20 mg/ml 10 ml VIAL (200 mg) ONE (14:31)
[2024-01-22] MEDS ORDERED: Naloxone 0.4 mg VIAL 0.4 mg/ml 1 ml VIAL ONE ×2 (14:34→14:37)
[2024-01-22] MEDS ORDERED: Etomidate 40 mg/20 ml (2 MG/ML) 20 ml VIAL (40 mg) ONE (14:45)
[2024-01-22 15:01] LABS: ABS Lymphocytes 0.8 10^3/uL (1.0-4.8); ABS Monocytes 1.2 10^3/uL (0.0-1.1); ABS Neutrophils 13.3 10^3/uL (1.5-7.6); ABS Nucleated RBC 0.01 10^3/ul; Eosinophil % 0.2 %; Lymphocyte % 4.9 %; Mean Corpuscular Hemoglobin 31.9 pg (27-33); Mean Corpuscular Hgb Conc 34.1 g/dL (31-36); Mean Corpuscular Volume 93.3 fL (80-97); Mean Platelet Volume 9.3 fL (7.5-11.2); Nucleated Red Blood Cells % 0.1 %/100WBC (0.0-0.8); Platelet Count 176 10^3/uL (150-450); Red Blood Count 4.08 10^6/uL (4.06-5.63); Red Cell Distribution Width 15.7 % (12-17); White Blood Count 15.3 10^3/uL (3.6-10.2)
[2024-01-22 15:04] LABS: Activated Partial Thrombo Time 25.7 seconds (26.0-38.0); INR 1.16 (0.83-1.13)
[2024-01-22] MEDS: NS 0.9% 1000 ml BAG 1,000 ML IV ONE (15:24)
[2024-01-22] MEDS: Labetalol IV 5 MG/ML 20 ml VIAL IV PUSH ONE (15:24)
[2024-01-22 15:36] LABS: Albumin 3.5 g/dL (3.2-5.2); Albumin/Globulin Ratio 1.2 (1-3); Calcium 9.8 mg/dL (8.6-10.3); Creatinine, Serum 0.96 mg/dL (0.67-1.17); Direct Bilirubin 0.2 mg/dL (0.03-0.18); HDL Cholesterol 37.9 mg/dL; Indirect Bilirubin 0.8 mg/dL (0.3-1.0); Potassium 4.2 mmol/L (3.5-5.0); Total Protein 6.5 g/dL (6.4-8.9); eGFR CKD-EPI 81.4 (>60)
[2024-01-22 15:57] LABS: Urine Appearance Clear; Urine Bilirubin Negative (Negative); Urine Blood 1+ (Negative); Urine Color Yellow; Urine Glucose Negative (Negative); Urine Ketones Trace (Negative); Urine Nitrite Negative (Negative); Urine Protein Trace (Negative); Urine Specific Gravity 1.022 (1.002-1.030); Urine Urobilinogen Negative (Negative)
[2024-01-22] MEDS ORDERED: Propofol 10 mg/ml 100 ML BTL 1,000 MG/100 ML BTL IV SCH (16:00)
[2024-01-22 16:16] LABS: Urine Bacteria 1+ /HPF (Absent); Urine Red Blood Cell 3+(>10/hpf) /HPF (0-Trace); Urine White Blood Cell 1+(6-10/hpf) /HPF (0-Trace)
[2024-01-22] MEDS: Propofol 10 mg/ml 100 ML BTL 1,000 MG/100 ML BTL IV SCH (16:19)
[2024-01-22] MEDS: niCARdipine 0.1MG/ML IVPREMIX 20 MG/200 ML BAG IV SCH (18:07)
[2024-01-22] MEDS ORDERED: Senna TAB 8.6 mg TAB PO PRN (20:29)
[2024-01-22] MEDS ORDERED: Atropine 1% (ORAL/SL) 15 ML BTL SL PRN (20:29)
[2024-01-22] MEDS ORDERED: Polyethylene Glycol 3350 17 GM PACKET PO PRN (20:29)
[2024-01-23 10:43] VITALS: BP 111/48
[2024-01-27] MEDS: Morphine ORAL CONCENTRATE 5 MG/0.25 ML ORAL.SYRIN SL PRN (17:12)
[2024-02-04] MEDS: Morphine ORAL CONCENTRATE 5 MG/0.25 ML ORAL.SYRIN SL PRN (17:27)
[2024-02-04] MEDS: Morphine ORAL CONCENTRATE 5 MG/0.25 ML ORAL.SYRIN SL SCH (18:01)
== END 2024-02-04 22:25 | disposition expired | DRG 66 ==
LOC: EDHOLD 14:26 → ED 14:26 → OBSVTOIN 20:37 → SUATTDRO 20:38 → MED 01-23 10:18
PROVIDERS: ADMIT Student in an Organized Health Care Education/Training Program; ATTEND Hospitalist